=== PATIENT | female | born 2000 | race Caucasian/White ===

== ENCOUNTER → 2020-05-13 08:05 | Outpatient (CLI) | payer OTHER, SELFPAY | PROVIDERS: PCP Pediatrics; Visit Provider Family Medicine | DX: Z11.59 Encounter for screening for other viral diseases (principal) | CPT/HCPCS: 87635; U0003 ==

== ENCOUNTER → 2020-05-20 08:26 | Outpatient (CLI) | payer OTHER, SELFPAY ==
[2017-03-17 18:38] VITALS: BMI 20.5
== END ==
LOC: OLS.ACH 08:27 → LABSPEC 05-22 12:41
PROVIDERS: PCP Pediatrics; Referring Provider Family Medicine; Visit Provider Family Medicine
DX: Z03.818 Encounter for observation for suspected exposure to other biological agents ruled out (principal)
CPT/HCPCS: 87635; U0003

== ENCOUNTER → 2020-07-31 14:44 | Outpatient (CLI) | payer OTHER, SELFPAY ==
[2017-03-17 18:38] VITALS: BMI 20.5
== END ==
PROVIDERS: PCP Pediatrics; Referring Provider Family Medicine; Visit Provider Family Medicine
DX: Z11.59 Encounter for screening for other viral diseases (principal)
CPT/HCPCS: 87635; U0003

== ENCOUNTER → 2020-08-14 15:00 | Outpatient (CLI) | payer OTHER, SELFPAY ==
[2017-03-17 18:38] VITALS: BMI 20.5
== END ==
PROVIDERS: Referring Provider Family Medicine; Visit Provider Family Medicine
DX: Z11.59 Encounter for screening for other viral diseases (principal)
CPT/HCPCS: 87635; U0003

== ENCOUNTER → 2020-08-28 16:13 | Outpatient (CLI) | payer OTHER, SELFPAY ==
[2017-03-17 18:38] VITALS: BMI 20.5
== END ==
PROVIDERS: Referring Provider Family Medicine; Visit Provider Family Medicine
DX: Z03.818 Encounter for observation for suspected exposure to other biological agents ruled out (principal)
CPT/HCPCS: 87635; U0003

== ENCOUNTER → 2020-09-11 10:49 | Outpatient (CLI) | payer OTHER, SELFPAY ==
[2017-03-17 18:38] VITALS: BMI 20.5
== END ==
PROVIDERS: Referring Provider Family Medicine; Visit Provider Family Medicine
DX: Z03.818 Encounter for observation for suspected exposure to other biological agents ruled out (principal)
CPT/HCPCS: 87635; U0003

== ENCOUNTER → 2020-09-25 16:00 | Outpatient (CLI) | payer OTHER, SELFPAY | PROVIDERS: Referring Provider Family Medicine; Visit Provider Family Medicine | DX: Z03.818 Encounter for observation for suspected exposure to other biological agents ruled out (principal) | CPT/HCPCS: 87635; U0003 ==

== ENCOUNTER → 2024-09-11 | Outpatient (CLI) | payer OTHER, SELFPAY | END | disposition home or self-care (01) | LOC: LABSPEC 18:02 | PROVIDERS: Visit Provider Physician Assistant | DX: N39.0 Urinary tract infection, site not specified (principal) | CPT/HCPCS: 87086; 87088 ==

== ENCOUNTER 2025-07-02 05:41 | Outpatient (REF) | payer OTHER, SELFPAY ==
[2025-07-02 05:41] VITALS: BP 122/94; PULSE 82; RESP 16; TEMP 36.6; O2SAT 98; BMI 21.3
--- NOTE | 2025-07-02 05:55 | EDS_ITS ---
HPI History of Present Illness Chief Complaint: Occup Expose Informant: patient Onset/Context/Timing Onset: Today Context: Sudden Onset Quality: Puncture wound Location: Left long finger Worsened by: Nothing Relieved by: Nothing Narrative Narrative: Patient presents with needlestick exposure that occurred today. Patient was administering Lovenox to a patient when she accidentally stuck herself with the needle after she injected Lovenox into the source patient. Patient cleaned the area immediately. Patient denies any bleeding. Patient denies any paresthesias or weakness. Patient states her last tetanus was up-to-date. Patient denies any other injuries. [facility] Medical History Physical exam, pre-employment no medical history Home Medications ?Medication ?Instructions ?Recorded ?Last Taken ?Type NK 02/12/25 Unknown History Allergy/AdvReac Type Severity Reaction Status Date / Time No Known Allergies Allergy Verified 07/02/25 05:44 Surgical History no surgical history no surgical history Social History Smoking Status: Never smoker ROS ROS ED Constitutional Constitutional ED: Denies chills or fever(s) Eyes Eyes: Denies blurry vision or change in vision ENT ENT ED: Denies rhinorrhea or sore throat Cardiovascular Cardiovascular: Denies chest pain or palpitations Respiratory/Chest Respiratory/Chest: Denies cough or dyspnea Gastrointestinal Gastrointestinal: Denies nausea or vomiting Genitourinary Genitourinary ED: Denies dysuria or hematuria Musculoskeletal Musculoskeletal: Denies back pain or neck pain Integumentary Denies abscess or rash Neurologic Neurologic: Denies headache(s) or weakness Allergic/Immunologic Allergic/Immunologic ED: Denies mouth swelling or urticaria EXAM Physical Exam Const Vital Signs: 07/02/25 05:41 07/02/25 05:41 Temperature 97.8 F Temperature Source Oral Pulse Rate 82 Respiratory Rate 16 Respiratory Pattern Normal Blood Pressure 122/94 H Blood Pressure Mean 103 Pulse Ox 98 Positive well nourished and well developed Constitutional Narrative: BMI is 21.3. General Appearance ED: well developed and NAD HEENT Reports moist mucous membranes Neck supple Extremity Extremity Narrative: There is a puncture wound noted over the volar aspect of the middle phalanx of the left middle finger. There is no active bleeding. There is mild edema. There is no deformity noted. There is full range of motion. Sensation is intact to light touch in all digits. Capillary refill is less than 2 seconds in all digits. General Extremety ED: Yes edema; Negative for tenderness General Extremity: edema Neuro oriented x3, CN's II-XII intact bilaterally and no sensory deficits noted Sensorium / Orientation: alert Motor Exam: strength 5/5 throughout Psych mental status grossly normal MDM MDM MDM Narrative Medical decision making narrative: Needlestick exposure protocol labs were obtained. Labs were obtained from the source patient as well. Patient reports that the source patient had no chronic medical conditions such as hepatitis or HIV. Patient is advised that this is low risk for blood-borne exposure transmission. Patient was instructed to follow-up with employee health in 5 to 7 days. Patient was instructed to return if worse in any way. Patient understood and was agreeable with the plan. All questions were answered. Discharge Plan Triage Chief Complaint: Occup Expose ED Provider: Juanito Dumas Dx/Rx/DC Orders Clinical Impression: Accidental hypodermic needlestick injury with exposure to body fluid Instructions: ED NEEDLE STICK Health Care Worker Prescriptions: No Action NK Primary Care Provider: Cayden Patton Referrals: Cayden Patton DO [Primary Care Provider] - 5-7 Days Print Language: Yoruba Disposition Disposition: Home, Self Care
--- OUTSIDE RECORDS SUMMARY | 2025-07-02 06:33 | XMS RPT_ITS | CCD ---
Author Organization [facility] Care Team Providers Care Customer Equipment Engineer Name Role Phone Kita Aguero LPN Unavailable Unavailabl aniya BeckwithDeanne peña Krysta Unavailable Abdias Mccartney Primary Care Provider Abdias Mccartney Primary Care Provider [phone] Abdias Mccartney MD Primary Care Provider PERLA DUNCAN Attending Unavailable PERLA DUNCAN Referring Unavailable ABDIAS MCCARTNEY Primary Care Unavailable PERLA DUNCAN Attending Unavailable ABDIAS MCCARTNEY Primary Care Unavailable Carlos Emanuel Attending Unavailable Assessment, Health Risk Referring Unavaila ble Jj Patton Primary Care Unavailable Assessment, Health Risk Attending Unavaila ble Jj Patton Primary Care Unavailable Assessment, Health Risk Attending Unavaila ble Assessment, Health Risk Referring Unavaila Jj Burden Primary Care Unavailable Jj Patton Referring Unavailable Carlos Emanuel Attending Unavailable Carlos Emanuel Attending Unavailable Medications Current Medications Medication Drug Class(es) Dates Sig (Normalized) Sig (Original) etonogestrel 68 mg drug implant (8 sources) Progestin Start: 02-18-2022 End: 02-17-2025 etonogestrel (NEXPLANON) subdermal implant 68 mg Indications: Insertion of implantable subdermal contraceptive 1 Each by SUBDERMAL route as directed. 1 Each 02/18/2022 01/26/2025 Discontinued Comment on above: 1 Each by SUBDERMAL route as directed. nitrofurantoin, macrocrystals 25 mg / nitrofurantoin, monohydrate 75 mg oral capsule (1 source) Nitrofuran Antibacterial Start: 12-20-2023 End: 12-27-2023 take 1 capsule by mouth twice daily nitrofurantoin monohydrate and macrocrystal (MACROBID) 100 mg capsule Indications: Dysuria , Urinary frequency Take 1 capsule by mouth two times a day for 7 days. 14 capsule 0 12/20/2023 12/27/2023 Active Comment on above: Take [address] [facility] two times a day for 7 days. Completed/Discontinued Medications Medication Drug Class(es) Dates Sig (Normalized) Sig (Original) ibuprofen 200 mg oral capsule (1 source) Nonsteroidal Anti-inflammatory Drug Start: 03-17-2017 IBUPROFEN 200 MG CAPS as directed IBUPROFEN [id number] Kita Aguero LPN Drug Treatment Unknown - unknown (1 source) No information available. Problems Active Problems Problem Classification Problem Date Documented Da te Episodic/Chronic Administrative/social admission (1 source) Encounter for pre-employment examination; Translations: [Encounter for pre-employment examination] Onset: 05-06-2025 Episodic Contraceptive and procreative management (3 sources) Patient encounter status; Translations: [Encounter for initial prescription of implantable subdermal contraceptive] Episodic Immunizations and screening for infectious disease (4 sources) Requires vaccination; Translations: [Encounter for immunization] Episodic Other screening for suspected conditions (not mental disorders or infectious disease) (1 source) Cancer cervix screening status; Translations: [Encounter for screening for malignant neoplasm of cervix] Episodic Unclassified (1 source) No current problems or disability 03-16-2017 Past or Other Problems Problem Classification Problem Date Documented Da te Episodic/Chronic Genitourinary symptoms and ill-defined conditions (3 sources) Dysuria; Translations: [Dysuria] Onset: 10-26-2024 12-20-2023 Episodic Other connective tissue disease (1 source) Biceps tendinitis; Translations: [Bicipital tendinitis, right shoulder] Onset: 03-17-2017 03-21-2017 Episodic Other non-traumatic joint disorders (1 source) Pain in elbow; Translations: [Pain in right elbow] Onset: 03-17-2017 03-17-2017 Episodic Sprains and strains (1 source) Unspecified sprain of right elbow, initial encounter; Translations: [Unspecified sprain of right elbow, initial encounter] Onset: 03-17-2017 03-21-2017 Episodic Urinary tract infections (1 source) Urinary tract infection, site not specified; Translations: [Urinary tract infection, site not specified] Onset: 10-26-2024 Episodic Results Test Name Value Interpretation Reference Range Facility Hepatitis B Surface Antibody on 05-06-2025 HEP B Surf Ab REAC Normal [facility] Comment on above: Result Comment: <8.5 mIU/mL: Non-Reactive 8.5<= x <11.5 mIU/mL: Indeterminate >=11.5 mIU/mL: Reactive Non Reactive: Inconsistent with immunity less than <10 mIU/mL Reactive: Consistent with immunity greater than or equal to 10 mIU/mL Performed By: #### L [id number] #### [facility] [address] [facility] [address] [id number] 02-12-2025 HEP B Surf Ab Non-Reactive Normal [facility] Comment on above: Result Comment: <8.5 mIU/mL: Non-Reactive 8.5<= x <11.5 mIU/mL: Indeterminate >=11.5 mIU/mL: Reactive Non Reactive: Inconsistent with immunity less than <10 mIU/mL Reactive: Consistent with immunity greater than or equal to 10 mIU/mL Performed By: #### L [id number] #### [facility] [address] [place], [place], [address] Urgent Care Visit Reporton 0 02-12-2025 Urgent Care Visit Report [facility] [address], [address] [place], [place] [address] OFFICE VISIT Date of Service: 02/12/25 MR#: [id number] Acct: [id number] Name: XIN MARINELLI Rep #: [id number] : 2000 Provider: AMADOR Davis Age/Sex: 24/F Location: [facility] Status: Signed Intake Vital Signs 09/11/24 13:38 Height 5 ft 1.5 in Weight: 115 lb 6 oz BMI 21.4 BP 100/62 Blood Pressure Location Lt brachial Position Sitting Respiration 15 Pulse 106 H Pulse Source NIBP Temp 99.6 F H Temp Source Oral Pulse Oximetry (%) 97 Oxygen Delivery Method room air Intake Visit Reasons: PE NON DOT PHYSICAL/ TCU Accompanied by: Self Allergies No Known Allergies Allergy (Verified 02/12/25 09:49) Medications ???Medication ???Instructions ???Recorded ???Confirmed ???Type NK 02/12/25 02/12/25 History Nurse's Note: Patient here for a TCU pre-employment physical. [facility] Medical History (Updated 02/12/25 @ 10:04 by Carlos ENGLISH PA) Physical exam, pre-employment Social History Smoking Status: Never smoker HPI HPI Details: XIN JOHNSONARTZ, is a 24 F who presents to the office today for Office Procedures Physical Exam Coding PE Coding Pre-employment PE: Yes Coding Level of Care Code No Charge Diagnoses Physical exam, pre-employment Z02.1 Assessment and Plan Assessment and Plan (1) Physical exam, pre-employment: Status: Acute 02/12/25 1004 Date Carlos ENGLISH Cosign Signature: Date (if applicable) CC: [facility] 01-25-2025 [facility] Office Visit (OBGYWM ) YVESXIN ([id number]) 1 F Date Time Provider Department 01/25/25 4:00 PM PERLA DUNCAN During your visit today, we recorded the following information about you: Pulse Blood pressure Weight Last Period 83/minute 106/74 50.3 kg 01/20/25 Perla Duncan APRN.JESSIKA 01/26/2025 9:40 AM Signed Xin is a 24 year old Female who presents for Nexplanon removal for desires conception. UNIVERSAL PROTOCOL / SAFETY CHECKLIST Procedure to be Performed: Nexplanon removal Sign In: A Moment of CARE was completed. Appropriate PPE (Personal Protective Equipment) worn by all providers involved with the procedure. Special equipment not required. Patient/Surrogate Stated/Verified: Patient name, Date of , Relevant allergies, and The intended procedure Time Out: Relevant labs, photos, and/or imaging studies are not applicable. Intended patient and procedure match the source document(s) (e.g. consent, HANDP, associated studies [imaging, pathology]) are not applicable. Consent obtained and matches the intended procedure. Yes. Correct side/site is not applicable. Medications required for this procedure are verified. Fire risk assessed and is not applicable. Implants: are not applicable. Sign Out: Specimens not collected. All instruments, equipment, possible retained foreign bodies are accounted for. Yes. The post-procedure plan of care has been communicated to the patient or surrogate. TECHNIQUE: Patient placed in supine position with left arm bent at the elbow and placed over the head. Skin cleansed with betadine. 1.5mL of 1% lidocaine with epi injected subQ along insertion site. Scalpel used to made a 5mm stab incision superficially at distal end of Nexplanon. Device removed under sterile technique with a small hemostat. Sterile pressure dressing applied. AANDP: 24 year old Female here for Nexplanon removal Nexplanon removed intact without difficulty. The patient was instructed to remove the dressing after 24 hours. Contraceptive plans Natural family planning Perla Duncan APRN.C PYTHON DEVELOPER Juan Turner MA 01/25/2025 4:39 PM Signed NEXPLANON PATIENT EDUCATION You may remove dressing in 24 hours. Expect some bruising. You may take over the counter pain medication (i.e. Tylenol, motrin, advil, etc) if you have discomfort. Referring Provider: PERLA DUNCAN [[id number]] Allergies As of Date: 01/25/2025 (No Known Allergies) Date Reviewed: 01/25/2025 Reviewed by: Perla Duncan APRN.C PYTHON DEVELOPER - Fully Assessed Reason for Visit: nexplanon removal [Other] Primary Visit Diagnosis:Encounter for Nexplanon removal [Z30.46] Problem List As Of Date: 01/25/2025 (None) Other instructions from your clinician: NEXPLANON PATIENT EDUCATION You may remove dressing in 24 hours. Expect some bruising. You may take over the counter pain medication (i.e. Tylenol, motrin, advil, etc) if you have discomfort. Medications Discontinued During This Encounter Prescriptions - etonogestrel (NEXPLANON) subdermal implant 68 mg (Discontinued) 1 Each by SUBDERMAL route as directed. Encounter Status:Closed by PERLA DUNCAN on 01/26/25 Normal [facility] CNOVon 12-21-2024 CNOV Office Visit (OBGYWM ) XIN MARINELLI ([id number]) 1 F Date Time Provider Department 12/21/24 9:30 AM PERLA DUNCAN OBGYWM During your visit today, we recorded the following information about you: Blood pressure Weight Height Last Period 114/62 50.8 kg 1.556 m 12/07/24 Perla Duncan APRN.C PYTHON DEVELOPER 12/21/2024 10:19 AM Signed Imaging Scheduler offered: Patient declines. Xin is a 24 year old who presents for an annual gynecologic exam without complaints. 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 Still get period: Yes Bleeding amount bothersome: No Bleeding between periods: Yes Period symptoms: Breast tenderness; Cramps; Mood change Menses: irregular spotting since Nexplanon inserted. Contraception: Nexplanon 02/18/2022 HPV vaccine: Yes Last Pap: 12/17/2022 normal HPV: N/A History of abnormal pap: No Last mammogram: never Sexually active: Yes History of STDS: None Patient concerns for STD exposure: No. Time with current partner: 2.5 years Pain with intercourse: No Postcoital bleeding: No Some documentation from previous visit of 12/20/2023 was copied and pasted, documentation has been reviewed and edited as necessary for today's visit. 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 PAST SURGICAL HISTORY Procedure Laterality Date NEXPLANON INSERTION Left 02/18/2022 TOOTH EXTRACTION wisdom teeth FAMILY HISTORY Problem Relation Age of Onset Cancer Father other (brain tumor) Father - surgery, doing well - chordoma other (precancerous skin lesions) Maternal Grandfather Heart Attack Paternal Grandfather Alcohol abuse Paternal Grandfather SOCIAL HISTORY Social History Tobacco Use Smoking status: Never Smokeless tobacco: Never Vaping Use Vaping status: Never Used Substance Use Topics Alcohol use: Never Drug use: Never REVIEW OF SYSTEMS Abdomen: No abdominal pain, nausea, vomiting, diarrhea, or constipation. No bloating, early satiety, indigestion, or increased flatulence. Bladder: No dysuria, gross hematuria, urinary frequency, urinary urgency, or incontinence. Breast: No breast lumps, nipple d/c, overlying skin changes, redness or skin retraction. Allergies and current medication updated:Yes SENSITIVE EXAM: The sensitive examination was discussed with the Patient or Patient's Authorized Pin Machine Tender. As applicable, any other physician, advance practice provider, medical student, or other health professional student that will be observing or involved in the sensitive examination for educational or training purposes was discussed with the Patient or Authorized Pin Machine Tender. The Patient or Authorized Pin Machine Tender has agreed to proceed with the sensitive examination. (Sensitive examination includes inspection and/or palpation of the breasts, pelvis, prostate and anorectal regions). EXAM: BP 114/62 Ht 5' 1.25 (1.56m) Wt 112 lb (50.8kg) LMP 12/07/2024 BMI 20.98 kg/(m2). GENERAL: pleasant, female in no apparent distress HEENT: Normocephalic, atraumatic, mucus membranes moist, and no lesions NECK: Supple, full range of motion, no adenopathy, and thyroid normal DERMATOLOGY: Normal, without lesions, non-icteric, and non-hirsute Nexplanon in proper position left arm BREAST: soft, non-tender, symmetric, no dominant mass, normal nipple-areolar complex, no lymphadenopathy, and no nipple discharge CHEST: Normal inspiratory effort ABDOMEN: soft, non-tender, and no masses PELVIC: external genitalia normal, normal Bartholin's glands, urethra, Chickasha's glands, no vulvar lesions, no cervical lesions, good vaginal support, dark blood present, normal appearing perineal body and perianal region BIMANUAL: uterus normal size, shape and consistency, no adnexal masses, and non-tender RECTOVAGINAL: deferred. NEURO: alert and oriented x3,exam grossly non-focal EXTREMITIES: normal ASSESSMENT/PLAN: 1) Health maintenance: Pap/HPV up to date. Nutrition, exercise and routine health maintenance exams reviewed. HPV vaccine: completed series 2) Contraception: Nexplanon. Contraceptive options reviewed and information provided. Order for Nexplanon removal. Plans Natural family planning. Recommend condom, VCF strips and PNVFA. 3) STD screening: Declined STD check. 4) Follow up one year or sooner as needed Perla Duncan APRN.Perla Bowles APRN.JESSIKA (more content not included)... Normal [facility] Urine Cultureon 09-13-2024 URC Below infection leve l. Mixed Gram Pos Gram Neg Org [place] Count <1000 MIXC Mixed contaminants. Submit a new specimen if indicated. Normal [facility] Comment on above: Performed By: #### M [id number] #### [facility] [address] [place], [place], [address] Urgent Care Visit Reporton 1 Urgent Care Visit Report [facility] [address], [address] [place] [address] OFFICE VISIT Date of Service: 09/11/24 MR#: [id number] Acct: [id number] Name: XIN CLARK Rep #: [id number] : 2000 Provider: AMADOR Davis Age/Sex: 24/F Location: [facility] Status: Signed Intake Vital Signs 09/11/24 13:38 Height 5 ft 1.5 in Weight: 115 lb 6 oz BMI 21.4 BP 100/62 Blood Pressure Location Lt brachial Position Sitting Respiration 15 Pulse 106 H Pulse Source NIBP Temp 99.6 F H Temp Source Oral Pulse Oximetry (%) 97 Oxygen Delivery Method room air Intake Visit Reasons: N/V/D/RUBIN/FATIGUED Chief Complaint: n/v/d/RUBIN, fatigue Torch Cutter Required: No Is patient in pain?: Yes Allergies No Known Allergies Allergy (Verified 09/11/24 13:39) Medications ???Medication ???Instructions ???Recorded ???Confirmed ???Type nitrofurantoin 100 mg PO Q12H 5 days #10 caps 09/11/24 09/11/24 Rx monohydrate/macrocrystals 100 mg capsule (Macrobid) Is last menstrual period known: No Post menopausal: No Patient : No Have you fallen in the past year?: No Nurse's Note: n/v/d/RUBIN, fatigue, generalized slight abd pain x 3 days. pt able to hold water down but not food. pt took test at home this morning (neg). denies fever. states has dysuria x3 days and taking Cystex otc for s/s, does note improvement but not resolution at this time. denies flank pain or blood in urine. PFSH Social History Smoking Status: Never smoker HPI HPI Chief Complaint: n/v/d/RUBIN, fatigue Details: XIN CLARK, is a 24 F who presents to the office today for [facility] for approximately 3 day history of dysuria and urinary frequency with suprapubic pressure along with generalized abdominal pain and nausea and diarrhea. No complaints of fever, chills, sweats, lightheadedness/dizziness, vomiting, or chest pain/shortness of breath/dyspnea on exertion/mid back pain. No melena/hematochezia though cloudy urine appreciated. Krlr-yyf-lwpozty Cystex taken with minimal to no assist. Patient requesting POC screening for COVID-19 and influenza as well as urinalysis screening; home test yesterday was negative. No other associated symptoms and no alleviating/aggravating factors. ROS Const Constitutional: No other (As above) Exam Const General: cooperative, healthy appearing and no acute distress Orientation: alert, awake and oriented x3 Chest Chest palpation inspection: normal inspection of the chest Resp Effort Inspection: normal respiratory effort and able to speak in complete sentences Auscultation: Bilateral: Clear to Auscultation Cardio Palpation: normal PMI Rate: regular rate Rhythm: regular rhythm Heart Sounds: S1 normal, S2 normal, no gallops, no murmurs and no rubs Pulses: radial pulses present GI Inspection: normal to inspection Palpation: soft and tender suprapubic (Patient describes upon self-palpation) General: No CVA tenderness Skin General: no rashes or lesions noted Neuro General: patient alert, patient awake and patient oriented x3 Cognition: normal cognition Speech: speech normal Psych Appearance: grossly normal Mental Status: mental status grossly normal Mood: congruent mood Affect: normal affect Speech and Movement: speech and movement normal Attitude: cooperative Diagnoses Contact with or exposure to other viral diseases Z20.828 Urinary tract infection N39.0 Assessment and Plan Assessment and Plan (1) Contact with or exposure to other viral diseases: Status: Acute (2) Urinary tract infection: Status: Acute Plan: See POC results; urine sent to lab for UA and C/S. Macrobid as prescribed today. Supportive measures as instructed today. Follow-up with PCP in 3 to 5 days should symptoms not improve, sooner should symptoms only worsen or any other concerns develop. Patient states acknowledging understanding all the above Results POC Urinalysis Dip (Clinic) Office Urine Color Yellow Last Edit by Dianne Cuello on 09/11/24 13:41 Office Urine Clarity Clear Last Edit by Dianne Cuello on 09/11/24 13:41 Office Urine Glucose Negative Last Edit by Dianne Cuello on 09/11/24 13:41 Office Urine Ketones Large (80+) Last Edit by Dianne Cuello on 09/11/24 13:41 Off Ur Spec Hull 1.025 Last Edit by Dianne Cuello on 09/11/24 13:41 Office Urine pH 6.0 Last Edit by Dianne Cuello on 09/11/24 13:41 Office Urine Bilirubin Negative Last Edit by Dianne Cuello on 09/11/24 13:41 Office Urine Urobilinogen Negative Last Edit by Dianne Cuello on 09/11/24 13:41 Office Urine Blood Trace Last Edit by Dianne Cuello on 09/11/24 13:41 Office Urine Blood Hemolyzed NA Last Edit by Dianne Cuello on 09/11/24 13:41 Office Uri (more content not included)... Normal [facility] UA DIP, URINE (POC)on 2023 BILIRUBIN UA (POCT) Negative Negative [facility] CLARITY U[facility] (POCT) [facility] COLOR UA (POCT) Yellow [facility] GLUCOSE UA (POCT) Negative Negative mg/dL [facility] Hemoglobin Ql (U) Moderate Abnormal Negative [facility] KETONE UA (POCT) Negative Negative mg/dL [facility] LEUKOCYTES UA (POCT) Moderate Abnormal Negative [facility] NITRITE UA (POCT) Negative Negative [facility] PH UA (POCT) 5.5 4.5 - 8.0 [facility] Protein Ql (U) Negative Negative mg/dL [facility] SPECIFIC GRAVITY UA (POCT) 1.025 1.005 - 1.030 [facility] UROBILINOGEN UA (POCT) 0.2 E.U./dL Normal E.U./dL [facility] HCG QUAL UR B/Oon 02-18-2022 status Negative neg - pos [facility] Quality Check Yes [facility] US THYROIDon 07-31-2021 US THYROID ORIGINAL EXAMINATION: ULTRASOUND OF THE THYROID WITH COLOR DOPPLER FLOW EVALUATION07/30/2021 2:01 pm ULTRASOUND OF THE THYROID: COMPARISON: None HISTORY: ORDERING SYSTEM PROVIDED HISTORY: Reason for Exam: thyromegaly on clinical examination, FINDINGS: The right and left lobes are 4.4 x 1.3 x 1.4 cm and 4.7 x 1.2 x 1.6 cm. The isthmus is also normal in size. The gland is homogeneous. No focal thyroid abnormality is seen. Estimated total number of nodules greater than or equal to 1 cm: 0 IMPRESSION: Normal thyroid ultrasound. Interpreted by: Tristian Zeng Preliminary Report By: Tristian Zeng Electronically signed By Tristian Zeng Dictated Date: 07/31/2021 9:22:41 AM Prelim Date: 07/31/2021 9:23:18 AM Sign Date: 07/31/2021 9:23:18 AM Ordering Provider: JJ PATTON [facility] ([place] Progress Noteon 01-07-2020 Design Assembler Authentication Interface Message Text I had the pleasure of seeing Xin Clark in clinic today for a follow-up visit regarding headaches. Xin Clark was last seen at the clinic on 10/29/2019. Xin Clark is 19 y.o. years old and was accompanied by mother for this visit. Since the last visit, Xin Clark reports headaches are improving overall since they are decreasing in frequency. However, she states they are increasing in intensity. She started using noise canceling earphones to block out loud noises. She also started using a peppermint oil on her forehead when she has a headache that seems to be helping. She drinks about 20 oz of water daily and sleeps 7 hours a night. Interval headache history: Frequency: once every other week Character: pressure Location: temples Radiation: occipital Average pain scale: 7-8/10 Aura: none Associated symptoms: phonophobia Any Focal Neurologic symptoms with headache: none Duration: half hour Abortive Treatment: does not like to take ibuprofen Response to treatment: N/A Aggravating Factors: loud noises Any recent E.R. Visits for headache: none Preventive treatment: Periactin, Magnesium, and Riboflavin Overall patient's assessment of headaches: improved Headache Disability: 1. In the last 3 months, how many full days of school were missed due to headaches? : 0 2. In the last 3 months, how many partial days of school were missed due to headaches? (Do not include the full days missed counted on Question 1): 0 3. In the last 3 months, how many days did you function less than half your ability in school because of a headache? (Do not include the days counted in Questions 1 and 2): 0 4. In the last 3 months, how many days were you not able to do things at home due to a headache? (For example chores, homework, etc): 1 5. In the last 3 months, how many days did you not participate in other activities due to a headache? (For example: play, go out, sports, etc): 12 6. In the last 3 months, how many days did you participate in these activities but functioned at less than half your ability? (Do not include the days counted in Question 5): 0 Total Score: 13 0 to 10, Little or no disability 11 to 30, Mild disability 31 to 50, Moderate disability 50+, Severe disability Previous Preventive Treatment Used:? None ? Previous Work-up for Headache:? Brain MRI: 04/20/17 IMPRESSION: ? 1. ? MRI of the brain is within normal limits. ? Pertinent labs and imaging have been reviewed. Meds: Medication Sig ? cyproheptadine (PERIACTIN) 4 MG tablet Take 3 tablets nightly ? vitamin B-2 (RIBOFLAVIN) 100 MG capsule Take 2 tablets (200 mg) by mouth twice a day. ? magnesium oxide (MAG OX) 400 MG TABS tablet Take 1 Tab (400 mg) by mouth daily ? ibuprofen (MOTRIN) 200 MG tablet Take 200 mg by mouth every 8 hours as needed Last dose Tuesday04-10-17 400 mg Indications: Fever, Mild to Moderate Pain ? vitamin B-2 (RIBOFLAVIN) 100 MG tablet Allergies: No Known Allergies Past History:? Diagnosis Date ? 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 Otitis media ? ? single infection ? ? Hyperacusis of both ears ? Family History:? Problem Relation Age of Onset ? Brain Tumor Father ? brainstem chordoma ? Migraines Paternal Aunt ? ? Rheumatoid Arthritis Maternal Grandfather ? ? Migraines Paternal Grandmother ? Social History: She is a freshman at [employer] and is studying nursing. She enjoys learning and is getting good grades. She also enjoys crocheting and being with her boyfriend. ROS: General: Negative for any unintended weight gain or loss. There has not been any injuries that have required medical attention Head: Negative for any medical issues regarding the patient's skull Face: Negative for any facial abnormalities Neck: Negative for any medical issues regarding the patient's neck or neck structures Eyes: Negative for any medical issues regarding the patient's eyes ENT: Negative for any medical issues regarding the patient's ears, nose or throat Respiratory: Negative for any medical issues regarding the lungs Cardiovascular: Negative for any medical issues regarding the patient's heart GI: Negative for any medical issues regarding the esophagus, stomach, intestines, exocrine pancreas or liver Urinary: Negative for any medical issues with elimination Musculoskel: Negative for any medical issues regarding the patient's muscles Orthopedic: Negative for any orthopedic issues involving bones, joints, spine or soft tissues comprising the orthopedic systems Skin: Negative for any skin abnormalities or discoloration Hematologic: Negative for any medical issues involving the blood or blood clotting mechanisms Endocrine system: Negative for any medical issues regarding the endocrine system including problems with the thyroid gland or diabetes Infectious: Negative for any infectious processes that have required the assistance of a physician Neuro exam: VSS: BP 110/62 Pulse 80 Ht 157 cm Wt 50.2 kg BMI 20.37 kg/m General: Patient appears healthy, well developed, well nourished and in no acute distress Cardiac: Rhythm regular, no murmurs present Respiratory: CTA, No wheezing, rhonchi or rales present. Mental status: Normal for age including orientation, memory, attention span, language and fund of knowledge Cranial nerve testing revealed the following: II- Pupils constrict to light bilaterally and accomodation reflex present. No papilledema on fundoscopic examination to the un-dilated eye. III, IV, - Pupils are equal, round, and reactive to light. Extraocular movements are intact. No nystagmus or strabismus present. V- Facial sensation was present and symmetrical VII - Eye closure was normal bilaterally and facial contours and strength were symmetrical VIII - Hearing present and equal bilaterally IX & X - Uvula midline with normal soft palate movement XI - Shoulder shrug strength appeared normal bilaterally XII - Tongue protrusion was midline Motor exam: Normal strength, muscle mass and tone in all extremities. Deep tendon reflexes were 2+ bilaterally. Cerebellar exam noted no involuntary movements or tremors present and finger to nose without dysmetria bilaterally. Sensation was intact and present to light touch. Coordination: fine motor intact, finger/nose exam performed, no abnormalities present. Rapidly alternating movements performed correctly. Gait: tandem gait normal and no ataxic movements present Labs/Imaging: none Impression: Xin is doing well with her headache management. She wishes to stay with the current plan and will contact me if she needs a Triptan added if consistency of natural supplements alone is ineffective. Plans: 1. Keep a headache diary and bring to your next visit. 2. Practice good lifestyle habits by: Drinking plenty of fluids Get regular and sufficient sleep Eat balanced meals Avoid skipping any meals especially breakfast Minimize stress Avoid known headache triggers 3. Preventive treatment:Continue Cyproheptadine 4mg -Take 3 tablets nightly -Continue natural supplements daily 4.? Abortive Treatment: (Treat within 30 minutes of migraine onset) Lay down in a cool, dark, quiet room Apply cold compress to forehead For head pain:? rest and chill out, if needed take? Ibuprofen? 2-2.5 tablets. If no better in 2 hours, take? 1.5 Extra Strength Tylenol ? Limit over the counter medication use to 2-3 days/week. ? 5.? Return in 6 months or sooner if needed- contact if triptan needed for headache management Aurelio Spivey, MSN, [employer], CPNP Neurology Nurse Practitioner [place] [phone] This note or partial portions of this note may have been created using a copy forward or copy paste feature, but these portions have been verified and re-edited for accuracy and any portions not in need of editing or review are not being used to generate any component necessary for billing purposes. Elements necessary for proper CPT code selection are based only on elements of the visit that are reviewed, re-examined or unique to this visit. Counseling and/or coordination of care was greater than 50% of the total time of 30 minutes spent on the encounter. Normal [facility] Progress Noteon 10-29-2019 Design Assembler Authentication Interface Message Text I had the pleasure of seeing Xin Clark in clinic today for a follow-up visit regarding headaches. Xin Clark was last seen at the clinic on 06/19/2019. Xin Clark is 19 y.o. years old and was accompanied by her mother for this visit. Since the last visit, Xin Clark reports her headaches have not been good. Towards the beginning oft he school year she was averaging about 2-3 severe headaches a week and she still has a mild daily headache. Towards the end of the semester the severe migraines decreased to about once a week. She increased her Cyproheptadine back to 2 tablets nighty a few weeks into the school year. She also got her noise inspector machine cut glass earphones fitted for her ears due to her hyperacusis, but she had to get them refitted this week. Interval headache history: Frequency: See above Character: Piercing and achy Location: All over the head or feels like a band around th head Radiation: No Average pain scale: 4-5/10 Aura: No Associated symptoms: Phonophobia, mild photophobia Any Focal Neurologic symptoms with headache: No Duration: 2 hours without treatment; does not normally treat; 30-45 minutes with treatment Abortive Treatment: Ibuprofen 2 tablets, if taken Response to treatment: Aborts all the time Aggravating Factors: Noise Any recent E.R. Visits for headache: No Preventive treatment: Cyproheptadine, Mg, Riboflavin Overall patient's assessment of headaches: Increased initially Headache Disability: 1. In the last 3 months, how many full days of school were missed due to headaches? : 0 2. In the last 3 months, how many partial days of school were missed due to headaches? (Do not include the full days missed counted on Question 1): 0 3. In the last 3 months, how many days did you function less than half your ability in school because of a headache? (Do not include the days counted in Questions 1 and 2): 5 4. In the last 3 months, how many days were you not able to do things at home due to a headache? (For example chores, homework, etc): 2 5. In the last 3 months, how many days did you not participate in other activities due to a headache? (For example: play, go out, sports, etc): 0 6. In the last 3 months, how many days did you participate in these activities but functioned at less than half your ability? (Do not include the days counted in Question 5): 0 Total Score: 7 0 to 10, Little or no disability 11 to 30, Mild disability 31 to 50, Moderate disability 50+, Severe disability Previous Preventive Treatment Used: None Previous Work-up for Headache: Brain MRI: 04/20/17 IMPRESSION: 1. MRI of the brain is within normal limits. Pertinent labs and imaging have been reviewed. Meds: Medication Sig cyproheptadine (PERIACTIN) 4 MG tablet Take 1.5 tablets nightly magnesium oxide (MAG OX) 400 MG TABS tablet Take 1 Tab (400 mg) by mouth daily vitamin B-2 (RIBOFLAVIN) 100 MG capsule Take 2 tablets (200 mg) by mouth twice a day. 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 ROS: General: Negative for any unintended weight gain or loss. There has not been any injuries that have required medical attention Head: Negative for any medical issues regarding the patient's skull Face: Negative for any facial abnormalities Neck: Negative for any medical issues regarding the patient's neck or neck structures Eyes: Negative for any medical issues regarding the patient's eyes ENT: Negative for any medical issues regarding the patient's ears, nose or throat Respiratory: Negative for any medical issues regarding the lungs Cardiovascular: Negative for any medical issues regarding the patient's heart GI: Negative for any medical issues regarding the esophagus, stomach, intestines, exocrine pancreas or liver Urinary: Negative for any medical issues with elimination Musculoskel: Negative for any medical issues regarding the patient's muscles Orthopedic: Negative for any orthopedic issues involving bones, joints, spine or soft tissues comprising the orthopedic systems Skin: Negative for any skin abnormalities or discoloration Hematologic: Negative for any medical issues involving the blood or blood clotting mechanisms Endocrine system: Negative for any medical issues regarding the endocrine system including problems with the thyroid gland or diabetes Infectious: Negative for any infectious processes that have required the assistance of a physician Neuro exam: VSS: BP 116/70 Pulse 99 Ht 156 cm Wt 48.9 kg BMI 20.09 kg/m General: Patient appears healthy, well developed, well nourished and in no acute distress Cardiac: Rhythm regular, no murmurs present Respiratory: CTA, No wheezing, rhonchi or rales present. Mental status: Normal for age including orientation, memory, attention span, language and fund of knowledge Cranial nerve testing revealed the following: II- Pupils constrict to light bilaterally and accomodation reflex present. No papilledema on fundoscopic examination to the un-dilated eye. III, IV, - Pupils are equal, round, and reactive to light. Extraocular movements are intact. No nystagmus or strabismus present. V- Facial sensation was present and symmetrical VII - Eye closure was normal bilaterally and facial contours and strength were symmetrical VIII - Hearing present and equal bilaterally IX & X - Uvula midline with normal soft palate movement XI - Shoulder shrug strength appeared normal bilaterally XII - Tongue protrusion was midline Motor exam: Normal strength, muscle mass and tone in all extremities. Deep tendon reflexes were 2+ bilaterally. Cerebellar exam noted no involuntary movements or tremors present and finger to nose without dysmetria bilaterally. Sensation was intact and present to light touch. Coordination: fine motor intact, finger/nose exam performed, no abnormalities present. Rapidly alternating movements performed correctly. Gait: tandem gait normal and no ataxic movements present Labs: None Impression: 19yo female with hx of concussion and chronic post traumatic headaches with hyperacusis and headaches consistent with chronic daily headaches. Discussed the option to maximize the Cyproheptadine or consider a preventive treatment switch. Discussed Amitriptyline, Topamax and Verapamil with possible side effects. At this time we will maximize dosing and assess at her follow up. Plans: 1. Keep a headache diary and bring to your next visit. 2. Practice good lifestyle habits by: Drinking plenty of fluids Get regular and sufficient sleep Eat balanced meals Avoid skipping any meals especially breakfast Minimize stress Avoid known headache triggers 3. Preventive treatment: Increase Cyproheptadine 4mg -Take 2.5 tablets nightly for one week and then increase to 3 tablets nightly and stay there -Continue natural supplements daily Can consider Migravent one tablet 2x/day or Migralief one tablet 2x/day in place of Mag and Riboflavin separately 4. Abortive Treatment: (Treat within 30 minutes of migraine onset) Lay down in a cool, dark, quiet room Apply cold compress to forehead For head pain: rest and chill out, if needed take Ibuprofen 2-2.5 tablets. If no better in 2 hours, take 1.5 Extra Strength Tylenol Limit over the counter medication use to 2-3 days/week. 5. Return on spring Aurelio Spivey, MSN, [employer], CPNP Neurology Nurse Practitioner [address] [id number] This note or partial portions of this note may have been created using a copy forward or copy paste feature, but these portions have been verified and re-edited for accuracy and any portions not in need of editing or review are not being used to generate any component necessary for billing purposes. Elements necessary for proper CPT code selection are based only on elements of the visit that are reviewed, re-examined or unique to this visit. Counseling and/or coordination of care was greater than 50% of the total time of 25 minutes spent on the encounter. Normal [facility] Progress Noteon 06-19-2019 Design Assembler Authentication Interface Message Text I had the pleasure of seeing Xin Clark in clinic today for a follow-up visit regarding headaches. Xin Clark was last seen at the clinic on 03/21/2019. Xin Clark is 18 y.o. years old and was accompanied by her sister for this visit. Since the last visit, Xin Clark reports her headaches appear to have remained unchanged. She does not usually like to teat her headaches, but when she does the headaches are aborted within 30 minutes. When the headaches are milder they only last about 10 minutes and she normally does not treat. She only treats her severe migraines. She decreased her Cyproheptadine about one month ago to 1.5 tablets as headaches remained stable at this dose, but she never decreased down to one tablet as previously discussed. Headache diary: March: 16 April:22 May: 15 June: Interval headache history: Frequency: See above Character: Piercing and achy Location: All over the head Radiation: No Average pain scale: 6/10 Aura: No Associated symptoms: Phonophobia, mild photophobia Any Focal Neurologic symptoms with headache: No Duration: 30 minutes with treatment Abortive Treatment: Ibuprofen 2 tablets Response to treatment: Aborts all the time Aggravating Factors: Noise and lack of sleep Any recent E.R. Visits for headache: No Preventive treatment: Cyproheptadine, Mg, Riboflavin Overall patient's assessment of headaches: Improved Previous Preventive Treatment Used: None Previous Work-up for Headache: Brain MRI: 04/20/17 IMPRESSION: 1. MRI of the brain is within normal limits. Pertinent labs and imaging have been reviewed. Meds: Medication Sig cyproheptadine (PERIACTIN) 4 MG tablet TAKE 2 TABLETS AT BEDTIME magnesium oxide (MAG OX) 400 MG TABS tablet Take 1 Tab (400 mg) by mouth daily vitamin B-2 (RIBOFLAVIN) 100 MG capsule Take 2 tablets (200 mg) by mouth twice a day. 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 ROS: General: Negative for any unintended weight gain or loss Injury. There has not been any injuries that have required medical attention Head: Negative for any medical issues regarding the patient's skull Face: Negative for any facial abnormalities Neck: Negative for any medical issues regarding the patient's neck or neck structures Eyes: Negative for any medical issues regarding the patient's eyes ENT: Negative for any medical issues regarding the patient's ears, nose or throat Respiratory: Negative for any medical issues regarding the lungs Cardiovascular: Negative for any medical issues regarding the patient's heart GI: Negative for any medical issues regarding the esophagus, stomach, intestines, exocrine pancreas or liver Urinary: Negative for any medical issues with elimination Musculoskel: Negative for any medical issues regarding the patient's muscles Orthopedic: Negative for any orthopedic issues involving bones, joints, spine or soft tissues comprising the orthopedic systems Skin: Negative for any skin abnormalities or discoloration Hematologic: Negative for any medical issues involving the blood or blood clotting mechanisms Endocrine system: Negative for any medical issues regarding the endocrine system including problems with the thyroid gland or diabetes Infectious: Negative for any infectious processes that have required the assistance of a physician Neuro exam: VSS: BP 106/59 Pulse 72 Ht 155.4 cm Wt 50.7 kg BMI 20.99 kg/m General: Patient appears healthy, well developed, well nourished and in no acute distress Cardiac: Rhythm regular, no murmurs present Respiratory: CTA, No wheezing, rhonchi or rales present. Mental status: Normal for age including orientation, memory, attention span, language and fund of knowledge Cranial nerve testing revealed the following: II- Pupils constrict to light bilaterally and accomodation reflex present. No papilledema on fundoscopic examination to the un-dilated eye. III, IV, - Pupils are equal, round, and reactive to light. Extraocular movements are intact. No nystagmus or strabismus present. V- Facial sensation was present and symmetrical VII - Eye closure was normal bilaterally and facial contours and strength were symmetrical VIII - Hearing present and equal bilaterally IX & X - Uvula midline with normal soft palate movement XI - Shoulder shrug strength appeared normal bilaterally XII - Tongue protrusion was midline Motor exam: Normal strength, muscle mass and tone in all extremities. Deep tendon reflexes were 2+ bilaterally. Cerebellar exam noted no involuntary movements or tremors present and finger to nose without dysmetria bilaterally. Sensation was intact and present to light touch. Coordination: fine motor intact, finger/nose exam performed, no abnormalities present. Rapidly alternating movements performed correctly. Gait: tandem gait normal and no ataxic movements present Labs: None Impression: 18yo female with hx of concussion and chronic post traumatic headaches with hyperacusis and headaches consistent with episodic migraine without aura stable with Cyproheptadine and natural supplements despite the Cyproheptadine dose decrease. She is interested in continuing to decrease her preventive treatment. Advised to decrease to one tablet nightly and if with migraine increase to resume does that kept headaches at bay. Plans: 1. Keep a headache diary and bring to your next visit. 2. Practice good lifestyle habits by: Drinking plenty of fluids Get regular and sufficient sleep Eat balanced meals Avoid skipping any meals especially breakfast Minimize stress Avoid known headache triggers 3. Preventive treatment: Decrease Cyproheptadine 4mg -Take one tablet nightly -Continue natural supplements daily -If with this weaning process the headache frequency begins to increase, go back to the dose that kept the headaches at bay and notify the office. 4. Abortive Treatment: (Treat within 30 minutes of migraine onset) Lay down in a cool, dark, quiet room Apply cold compress to forehead For head pain: rest and chill out, if needed take Ibuprofen 2-2.5 tablets. If no better in 2 hours, take 1.5 Extra Strength Tylenol Limit over the counter medication use to 2-3 days/week. 5. Return in 4 months on [place] break, sooner if needed Aurelio Spivey, MSN, [employer], CPNP Neurology Nurse Practitioner [address] [id number] This note or partial portions of this note may have been created using a copy forward or copy paste feature, but these portions have been verified and re-edited for accuracy and any portions not in need of editing or review are not being used to generate any component necessary for billing purposes. Elements necessary for proper CPT code selection are based only on elements of the visit that are reviewed, re-examined or unique to this visit. Counseling and/or coordination of care was greater than 15 minutes which is more than 50% of the total time of 20 minutes spent on the encounter. Normal [facility] Progress Noteon 06-13-2019 Design Assembler Authentication Interface Message Text Patient ID: Xin Clark is a 18 y.o. female. Her chief complaint(s) include: Rash (x tuesday. Itches. Ck spot on foot, she pulled the thorn out.) Assessment 1. Poison oj 2. Rash 3. Cough Plan Xin was seen today for rash. Diagnoses and all orders for this visit: Poison oj - triamcinolone (KENALOG) 0.025 % ointment; Apply to affected area 2 times daily as needed (itchy rash) for up to 10 days Apply thin film to affected areas Start with topical steriods first given localized If worsening, on face, spreading- will start oral steriods Mother will call if worsening Rash Avoid scratching. Cool compress Call if area looks more red, spreading, painful, drainage Cough - improving. call if worsening coughing, persistent cough next week, fever, or new concerns- will start abx at that time to cover sinusitis Return if symptoms worsen or fail to improve. Subjective HPI Comments: 18 y/o here for 2 types of rashes Has weeding outside with mother and started getting itchy rash on forearms and right leg since Tuesday. no pain/drainage/pustules. Mother has similar rash. No fever. No new products/detergants/lotions Was playing frisbee outside barefoot on Tuesday. Step on something like a thorn or wood. Pulled it out. Has some redness and started itching yesterday. No pain. No fever. No drainage. Cough x 1 month- dry. Getting better. No fever/sore throat. No ear pain. No congestion/runnynose. No trouble breathing/SOB. She is accompanied by her mother. Review of Systems Skin: Positive for rash. Objective Vital Signs 06/13/19 1139 Temp: 36.2 C (97.2 F) TempSrc: Temporal Weight: 49.8 kg There is no height or weight on file to calculate BMI. Physical Exam Constitutional: She appears well. She is active. No distress. HENT: Head: Atraumatic. Right Ear: Tympanic membrane normal. Left Ear: Tympanic membrane normal. Nose: No nasal discharge. Mouth/Throat: Mucous membranes are moist. Oropharynx is clear. Eyes: Conjunctivae are normal. Neck: Normal range of motion. Neck supple. Cardiovascular: Normal rate, regular rhythm, S1 normal and S2 normal. Heart murmur not heard. Pulmonary/Chest: Effort normal and breath sounds normal. There is normal air entry. No stridor. No respiratory distress. Air movement is not decreased. She has no wheezes. She has no rhonchi. She has no rales. Exhibits no retraction. Abdominal: Soft. Bowel sounds are normal. She exhibits no distension and no mass. There is no tenderness. Neurological: She is alert. Skin: Capillary refill takes less than 3 seconds. Rash (small circular area of light erythema on bottom on right foot, pt scratching at it. no flucutuance/induration/draina ge, non tender) noted. Scattered erythematous papules on right upper thigh, several macular papular rash on BL forearms, no drainage/tenderness Skin is warm. Vitals reviewed: Temperature 36.2 C (97.2 F), temperature source Temporal, weight 49.8 kg, last menstrual period 05/09/2019. Normal [facility] Progress Noteon 03-21-2019 Design Assembler Authentication Interface Message Text I had the pleasure of seeing Xin Clark in clinic today for a follow-up visit regarding headaches. Xin Clark was last seen at the clinic on 02/05/2019 by Denita Lucero CNP. Xin Clark is 18 y.o. years old and was accompanied by her mother for this visit. Since the last visit, Xin Clark reports her headaches have been less frequent, but with the same intensity. She reports noise is a huge trigger for her headaches and when she separates herself from it the headaches subside. She reports on average she may miss a day or two of her natural supplements, but she is pretty consistent with her Cyproheptadine. They have not acquired the ear buds recommended by Dr. Castillo due to the distance to [place] and would prefer to find someone closer to [place], [place]. Interval headache history: Frequency: once a week or once every other week Character: Pounding Location: Parietal region Radiation: No Average pain scale: 6/10 Aura: No Associated symptoms: Phonophobia Any Focal Neurologic symptoms with headache: No Duration: 30 minutes with treatment Abortive Treatment: Ibuprofen 2 tablets Response to treatment: Aborts all the time Aggravating Factors: Noise and lack of sleep Any recent E.R. Visits for headache: No Preventive treatment: Cyproheptadine, Mg, Riboflavin Overall patient's assessment of headaches: Improved Headache Disability: 1. In the last 3 months, how many full days of school were missed due to headaches? : 0 2. In the last 3 months, how many partial days of school were missed due to headaches? (Do not include the full days missed counted on Question 1): 0 3. In the last 3 months, how many days did you function less than half your ability in school because of a headache? (Do not include the days counted in Questions 1 and 2): 6 4. In the last 3 months, how many days were you not able to do things at home due to a headache? (For example chores, homework, etc): 0 5. In the last 3 months, how many days did you not participate in other activities due to a headache? (For example: play, go out, sports, etc): 12 6. In the last 3 months, how many days did you participate in these activities but functioned at less than half your ability? (Do not include the days counted in Question 5): 10 Total Score: 28 0 to 5, MIDAS Grade I, Little or no disability 6 to 10, MIDAS Grade II, Mild disability 11 to 20, MIDAS Grade III, Moderate disability 21+, MIDAS Grade IV, Severe disability Previous Preventive Treatment Used: None Previous Work-up for Headache: Brain MRI: 04/20/17 IMPRESSION: 1. MRI of the brain is within normal limits. Pertinent labs and imaging have been reviewed. Meds: Medication Sig magnesium oxide (MAG OX) 400 MG TABS tablet Take 1 Tab (400 mg) by mouth daily vitamin B-2 (RIBOFLAVIN) 100 MG capsule Take 2 tablets (200 mg) by mouth twice a day. cyproheptadine (PERIACTIN) 4 MG tablet At bedtime take 2 tablets (8 mg). 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 ROS: General: Negative for any unintended weight gain or loss Injury. There has not been any injuries that have required medical attention Head: Negative for any medical issues regarding the patient's skull Face: Negative for any facial abnormalities Neck: Negative for any medical issues regarding the patient's neck or neck structures Eyes: Negative for any medical issues regarding the patient's eyes ENT: Negative for any medical issues regarding the patient's ears, nose or throat Respiratory: Negative for any medical issues regarding the lungs Cardiovascular: Negative for any medical issues regarding the patient's heart GI: Negative for any medical issues regarding the esophagus, stomach, intestines, exocrine pancreas or liver Urinary: Negative for any medical issues with elimination Musculoskel: Negative for any medical issues regarding the patient's muscles Orthopedic: Negative for any orthopedic issues involving bones, joints, spine or soft tissues comprising the orthopedic systems Skin: Negative for any skin abnormalities or discoloration Hematologic: Negative for any medical issues involving the blood or blood clotting mechanisms Endocrine system: Negative for any medical issues regarding the endocrine system including problems with the thyroid gland or diabetes Infectious: Negative for any infectious processes that have required the assistance of a physician Neuro exam: VSS: BP 122/65 Pulse 77 Ht 153.8 cm Wt 51.1 kg BMI 21.60 kg/m General: Patient appears healthy, well developed, well nourished and in no acute distress Cardiac: Rhythm regular, no murmurs present Respiratory: CTA, No wheezing, rhonchi or rales present. Mental status: Normal for age including orientation, memory, attention span, language and fund of knowledge Cranial nerve testing revealed the following: II- Pupils constrict to light bilaterally and accomodation reflex present. No papilledema on fundoscopic examination to the un-dilated eye. III, IV, - Pupils are equal, round, and reactive to light. Extraocular movements are intact. No nystagmus or strabismus present. V- Facial sensation was present and symmetrical VII - Eye closure was normal bilaterally and facial contours and strength were symmetrical VIII - Hearing present and equal bilaterally IX & X - Uvula midline with normal soft palate movement XI - Shoulder shrug strength appeared normal bilaterally XII - Tongue protrusion was midline Motor exam: Normal strength, muscle mass and tone in all extremities. Deep tendon reflexes were 2+ bilaterally. Cerebellar exam noted no involuntary movements or tremors present and finger to nose without dysmetria bilaterally. Sensation was intact and present to light touch. Coordination: fine motor intact, finger/nose exam performed, no abnormalities present. Rapidly alternating movements performed correctly. Gait: tandem gait normal and no ataxic movements present Labs: None Impression: 18yo female with hx of concussion with hyperacusis and headaches consistent with episodic probable migraine without aura improved possibly related to resolution of her concussion. She is interested in decreasing her preventive treatment, instructed to resume does that kept headaches at bay if headaches begin to increase with the mediation decrease. Provided number to [facility] main line to inquire hydroelectric component machinist closer to her area. Plans: 1. Keep a headache diary and bring to your next visit. 2. Practice good lifestyle habits by: Drinking plenty of fluids Get regular and sufficient sleep Eat balanced meals Avoid skipping any meals especially breakfast Minimize stress Avoid known headache triggers 3. Preventive treatment: Decrease Cyproheptadine 4mg -Take 1.5 tablets nightly for one week and then decrease to one tablet nightly -Continue natural supplements daily 4. Abortive Treatment: (Treat within 30 minutes of migraine onset) Lay down in a cool, dark, quiet room Apply cold compress to forehead For head pain: rest and chill out, if needed take Ibuprofen 2.5 tablets. If no better in 2 hours, take 1.5 Extra Strength Tylenol Limit over the counter medication use to 2-3 days/week. 5. Return in 3-4 months, sooner if needed Aurelio Spivey, MSN, [employer], CPNP Neurology Nurse Practitioner [address] [address] Counseling and/or coordination of care was greater than 15 minutes which is more than 50% of the total time of 20 minutes spent on the encounter. Normal [facility] Progress Noteon 02-05-2019 Design Assembler Authentication Interface Message Text [facility] Pediatric Neurology New Patient Note Primary Care Doctor: Abdias Mccartney MD Date of service: 02/05/2019 Provider: Teagan Rodriguez, MSN, C PYTHON DEVELOPER Xin Clark is a 18 y.o. female was seen today in the Brain Injury Program, accompanied by her mother. The following is a review of her injury history, exam, and treatment plan. Present injury: The injury occurred: fall 2016, over 1.5 years ago. TBI Description: Playing soccer, elbow to left side of head. 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 Management/Imaging: She did not seek treatment, felt like the concussion resolved in about 6 weeks except for chronic headaches. At her first visit to TBI clinic on 10/11/18, Xin had 2-3 headaches per week, with significant noise sensitivity. She had been playing soccer at the time, headaches had worsened to 5 headaches per week, she had at least one fall during this season that may have worsened her symptoms as well. She was occasionally noticing dizziness. Evaluation that day revealed no new concussion symptoms. She had a post traumatic headaches with migraine and tension phenotypes that had worsened over the last year. I recommended cyproheptadine, magnesium and riboflavin for headache prevention. Today Xin says her headaches are under control with the cyproheptadine 8 mg and supplements, she has only missed a couple of doses. She continues to have severe bilateral noise sensitivity that has triggered 1 severe headache in the last month. She is in orchestra and wears ear plugs that seem to help some. She is doing well in school, graduates this year and will be going [employer] in the fall. Post Concussive Symptoms reviewed in the following domains: Physical: 114/65 50.3 kg (20 %, Z= -0.83, Source: [facility] (Girls, 2-20 Years)) Headache: Xin is having 1 headache per week, only when exposed to loud noise, like orchestra, parties and crowds. Frequency/Duration: the headaches only last a few minutes or until she is out of the noise. Location: both sides and top of her head. Character: sometimes pressure, rarely throbbing, pounding, no pulsating. Severity: 5/10, no longer debilitating, only one bad headache in the last month. The headaches do not awakened from sleeping. Triggers: Lays down, gets out of the noise, ibuprofen 400 mg Accompaniments: bright light sensitivity, significant noise sensitivity, no nausea, no vomiting, no dizziness, no numbness/tingling/weakness in extremities, no speech problems or swallowing problems, no other focal neurological symptoms. Relief from: Rest, ibuprofen Headache phenotype (answer yes or no) Possible migraine phenotype? (A yes answer for 2/3 following items): yes Is nausea present? no Is light sensitivity present? yes Does headache prevent you from doing your regular activities? yes Additional features for stratification Continuous headache present? no Daily headache present? yes PCSS Current Headache Score: 4 Cervical: There is no neck pain, no radicular symptoms. Vestibular: There is no dizziness or unsteadiness with quick head movements. There is dizziness with getting up from laying down. Water intake: 20 ounces per day. There is premorbid car/motion sickness. There is occasional bilateral tinnitus, high pitched when in quiet, no problems hearing. Ocular: There is no blurred vision with focusing on objects/reading. No double vision. Cognitive: Xin has no mental fogginess and is not feeling slowed down mentally. There are no problems with concentration, and no problems with memory. Xin is in 12th grade at [employer]. Previous grades have been A and B student, school performance is not affected by the injury. Sleep: Xin has no problems initiating sleep, and no problems staying asleep. Sleeps 7-8 hours/night, is not drowsy in the daytime, is not napping. Mood: Parent and patient report mood is normal, not affected by the injury. Review of systems: General: Previously healthy, appetite is normal. Neurologic: Xin has had 2 previous concussion(s). #1.) 03/17/17 treated in TBI clinic, she had symptoms until summer, did not follow up in TBI clinic. Per Johanna Henning 03/30/17: Impression: Xin presents with a concussion that occurred 03/17/17 followed by persistent daily headaches with a premorbid hisotry for daily headaches. The neurologic exam revealed the following pertinent findings John lateralizes to the left and was otherwise normal. Vital signs reveal orthostasis. The situation in which Xin had a syncopal episode is not uncommon and orthostasis could have contributed to this. Instructions for management of the headaches are noted below and include stopping all analgesia in the event there is an element of analgesia rebound. The magnesium and vitamin B2 will be continued and the B2 increased to 400 mg daily since this is the recommended preventive dose. Risks and benefits of the medication discussed. MRI brain will be done in view of positive Lopez since it is unclear if this is a finding that would have been present prior to the injury or subsequent to the injury. Refer to audiology for hearing evaluation. Xin is not currently cleared to return to sports until the MRI and audiology exam is completed. Instructions: Stop all Ibuprofen and Tylenol for minimum of 6 weeks. Preventive Treatment: The importance of adequate fluid intake is critical. Drink a minimum of 60 ounces of water, milk, gatorade and decaffeinated fluids. If you are involved in sports, increase this further by drinking 50% more than your daily intake on game or practice days, No caffeinated beverages, continue a regular sleep pattern which means going to bed and awakening at the same time every day, even on weekends. Keep a headache diary, Continue daily Magnesium 400 mg, Vitamin B2 400 mg 04/20/17: MRI of the brain is within normal limits #2.) Fall of 2016 elbow to left side of head in soccer, 6 weeks of symptoms, she did not tell anyone except her head athletic trainer/strength coach, she sat out 3 weeks and started supplements, headaches less severe but continued afterward. There has been no history of staring spells, seizures, neurologic problems. history/development: full term, healthy, no developmental delays. There were no complications of mom's or at . Vestibular: There has been no impaired balance, dizziness, coordination problems. There has been premorbid motion sickness. Ocular: There has been no previous vision problems. Cognitive: There has been no history of learning disability, no IEP, no speech therapy, no history of ADD/ADHD. Sleep: There has been no previous sleep disturbances. Mood: There has been no past behavioral or mood conditions. There has been no previous ETOH/drug use/abuse. FMH: Migraine headaches in primary family: dad, PGM, paternal aunt. There are family members with seizures, mom had epilepsy until teen years, GTC, no family members with brain diseases. There are family members with psychiatric disorders, mom has anxiety, is on medication. PFSH: Xin lives with mom, dad, brothers (15, 10), exchange student from [employer]. Stressors include: none Usual activies include show choir. PHYSICAL EXAMINATION: Xin is right handed Vision Screen: Right 20/20, Left 20/20 General: well appearing, no acute distress Hydration: mucous membranes moist Head: no pain, numbness, tingling on palpation of scalp or face. Mouth: Tongue midline, pharynx without erythema or exudate Ears: The external canals without swelling, cerumen impaction, or otorrhea. The tympanic membranes are clear bilaterally. Cervical spine: Symmetric musculature, no tenderness to palpation of midline, no tenderness of paracervical muscles, AROM is full and pain free, flexion with rotation is not limited. Spurlings and compression tests are negative for radiculopathy. CV: RRR. No murmur, no carotid, periorbital, or temporal bruits Chest:/Lung: breath sounds clear and equal bilaterally Abdomen: Soft, non-tender Extremities: non tender, full range of motion, strength Back: non tender, no deformity. Skin: warm, dry, no rash NEUROLOGIC EXAM: General: alert and interactive. Attention: attention span and concentration are age appropriate. Language: fluent and spontaneous without dysarthric features Mental status: Alert and oriented x 3. Cranial Nerves: II - PERRL III - no ptosis III/IV/ - EOMs intact, gaze appears conjugate in all directions. V - normal chewing VII - symmetric smile VIII - hearing intact; balance is normal with tandem & closed eye testing IX, X - normal palatal elevation XI - normal sternocleidomastoid and trapezius function XII - normal tongue protrusion, no fasciculations Funduscopic eye exam: sharp disc margins, vessels visualized, no papilledema appreciated. Vestibular/Ocular: Near point convergence is 2,2,2 cm. Near point of accommodation is 4 cm right/ 4 cm left. Vertical and horizontal saccade and slow pursuit movements are normal, there is no slowing, no undershooting, no overshooting of targets, no nystagmus. Eye tracking is non-provocative for dizziness/discomfort/saccadic correction. VOR gaze stability is normal, there is no dizziness, no blurriness with head movements. Cerebellar exam: noted no tremors, gait was normal, romberg is steady, balance testing double leg, single leg, eyes open is steady, with closed is steady, tandem stance steady with eyes open and closed, tandem gait was steady with head movement side to side. Fine motor testing normal for rapid finger tapping, hand pronation/supination, finger to object. Motor exam: normal strength, muscle mass, and tone in all extremities. Deep tendon reflexes: 2+ and equal in biceps, brachioradialis, triceps, patellar, achilles tendons. Plantar responses were flexor bilaterally. Sensation: normal to light touch in face, neck, and extremities. Pertinent abnormal exam findings include: no abnormalities noted VISIT DIAGNOSES/ IMPRESSION: Xin is a 18 y.o.female with post traumatic increase in chronic migraine headaches under better control with cyproheptadine and supplements. She continues to have significant bilateral hyperacusis. Therefore I recommend: 1. Headache treatment: Preventive: Continue to take Magnesium oxide 400 mg once a day and Riboflavin (vitamin B2) 200 mg twice a day for prevention of headaches. Continue cyproheptadine 2 tablets (8 mg) at bedtime. Treating a breakthrough headache (rescue plan) or prevention for loud events: Take Aleve 2 tablets or Ibuprofen 400-600 mg or Tylenol 1000 mg, over the counter dosing to relieve a bad headache. If needing more than 3 doses a week, call to consider increasing preventive medication. Lay down in a cool, dark quiet room, apply cold compress to forehead, chill, sleep. 2. Hyperacusis: *Wire Rope Sales Representative evaluation for noise cancelling ear plugs and diagnosis of hyperacusis. Will call you with more information this week. 3. Activity limitations: Daily low-moderate level relaxing activity is recommended. 4. Cognitive treatment/school accommodations: Full days of school, no accommodations needed. 5. Mood treatment: Carefully monitor behavior and attention, calmly discuss the proper behavior in non-emotional way to re-train proper behavior. Psychological counseling is recommended if stress is causing headaches. 6. Sleep disturbance: It is crucial to have a good sleep routine, 8-11 hours/night, limit napping, no interactive electronics before bed. Healthy Lifestyle Treatment: Schedule regulation/sleep/nutrition/ hydration: Be sure to establish a routine for sleeping, eating, hydrating and light exercise should be at the same time daily, (see schedule regulation handout). Again be sure to get 8-9 hours of restful sleep at night (see sleep hygiene handout). Limit naps to 30 minutes or less. Plan to do something fun and safe upon awakening. Be sure to drink and eat throughout the day (see Concussion Tips Handout). Increase fluid intake to at least 60-80 ounces/day, at least half of fluid intake should be water. Make sure to use relaxation to lessen stress as much as possible. (See handout). No caffeine, artificial sweeteners or energy drinks. Do not skip any meals, add more protein to diet at each meal, eat frequently. Return to [facility] for a follow up visit in 6 weeks with Aurelio Spivey CNP. 60 minute visit; > 50% of the [id number] visit time was dedicated to counseling and coordination of medical care. I discussed the expected recovery process for concussion with mom and patient and that her symptoms are more likely post traumatic onset of migraine headaches. We discussed the reason for her slow recovery time, she has been more compliant since her last visit but is still 2 months late with her follow up visit. I recommended continuing cyproheptadine and supplements and having an hydroelectric component machinist evaluation for noise sensitivity that persists even when headaches are under control. She is to continue to get adequate rest, good sleep, stress relief strategies, healthy nutrition, hydration, and information on how to promote healing and avoid aggravating factors were given to them. Treatment plan compliance, and the need to modify activities and prevention strategies including head protection were discussed. They voiced understanding and agreed with this plan of care. Normal [facility] CNOVon 01-23-2018 CNOV Office Visit ([facility]) -XIN CLARK ([id number]) 00 FDate Time Provider Department01/23/18 5:45 PM LOLA BURKETT (BATT PACKER) [facility] During your visit today, we recorded the following information about you: Temperature Pulse Respiration Weight 99 degrees 74/minute 16/minute 48.1 kg Last Period 12/26/17Lola Burkett CNP, JESSIKA 01/23/2018 6:37 PM SignedSubjectiveHPIPatient presents with:Nasal Congestion: drainage, chills, fever x 24 hoursDenies getting flu vaccine this season.Denies hx of asthma, bronchitis, pneumoniaDenies any otc treatment for symptoms.Review of SystemsConstitutional: Positive for chills, fever and malaise/fatigue.HENT: Positive for congestion and sore throat. Negative for ear pain.Eyes: Negative for discharge and redness.Respiratory: Positive for cough. Negative for hemoptysis, sputum production,shortness of breath and wheezing.Gastrointestinal: Negative for abdominal pain, diarrhea, nausea and vomiting.Skin: Negative for rash.Neurological: Positive for headaches.No past medical history on file.No past surgical history on file.ALLERGIES Review of patient's allergies indicates no known allergies.MEDICATIONSRIBOFLAV IN, VITAMIN B2, (VITAMIN B-2 ORAL) Take by mouth.MAGNESIUM OXIDE (MAG-OXIDE ORAL) Take by mouth.No family history on file.Social HistorySubstance Use Topics- Smoking status: Never Smoker- Smokeless tobacco: Never Used- Alcohol use Not on fileObjectivePhysical ExamConstitutional: She is well-developed, well-nourished, and in no distress.HENT:Head: Normocephalic.Right Ear: Tympanic membrane, external ear and ear canal normal.Left Ear: Tympanic membrane, external ear and ear canal normal.Nose: Rhinorrhea present. Right sinus exhibits no maxillary sinus tendernessand no frontal sinus tenderness. Left sinus exhibits no maxillary sinustenderness and no frontal sinus tenderness.Mouth/Throat: Posterior oropharyngeal erythema (injected with PND) present.Eyes: Conjunctivae are normal.Neck: Normal range of motion. Neck supple.Cardiovascular: Normal rate, regular rhythm and normal heart sounds.Pulmonary/Chest: Effort normal and breath sounds normal. No respiratorydistress. She has no wheezes.Abdominal: Soft. She exhibits no distension. There is no tenderness.Lymphadenopathy: She has no cervical adenopathy.Skin: Skin is warm and dry. No rash noted.Nursing note and vitals reviewed.ASSESSMENT/PLAN:1. Flu-like symptoms - ICD9: 780.99, ICD10: R68.31-xatq-GCSbx;48hrs onset-Tamiflu written rx given, reviewed with mother if pt symptoms worsen, maystart by tomorrow at noon for efffectiveness-reviewed viral etiology-supportive care, rest, fluids, analgesics PRN-F/u with pcp in 3-5 days or sooner if symptoms are not improving or worseningPrescription instructions reviewed with patient as applicable. Patient advisedif symptoms do not improve or if symptoms worsen sooner, to contact theirprimary care physician. Potential red flag symptoms discussed with thepatient. Reviewed appropriate action plan to take if red flag symptoms occur.Patient agreeable to treatment plan.Edward Weaver CNP, C PYTHON DEVELOPER 01/23/2018 6:30 PM SignedEXPRESS CARE PATIENT INFOINFLUENZA INTRODUCTIONInfluenza (commonly called the flu) is a highly contagious illness that canoccur in children or adults of any age. It occurs more often in the wintermonths because people spend more time in close contact with one another. Theflu is spread easily from zoeehs-sd-iutpti by coughing, sneezing, or touchingsurfaces.Every year, complications of the flu require more than 200,000 people in [facility] to be hospitalized. Serious illness is more likely in the veryyoung, older adults, women, and people who have certain healthproblems such as asthma or other forms of lung disease.There have been several widespread flu outbreaks (called pandemics), which ledto the deaths of many people worldwide. These outbreaks occurred when newstrains of influenza viruses formed (often from pigs or birds) and humansbecame infected because they had no immunity to these viruses.FLU SYMPTOMSSymptoms of seasonal flu can vary from person to person, but usually include:? Fever (temperature higher than 100?F or 37.8?C)? Headache and muscle aches? Fatigue? Cough and sore throat may also be presentPeople with the flu usually have a fever for two to five days. This isdifferent than fever caused by other upper respiratory viruses, which usuallyresolve after 24 to 48 hours.Some people have cold-like symptoms (runny nose, sore throat) during the fluwhile others have fever and muscle aches. Flu symptoms usually improve over twoto five days, although the illness may last for a week or more. Weakness andfatigue may persist for several weeksFlu complications ? Complications of influenza occur in some people; pneumoniais the most common complication. Pneumonia is a serious infection of the lungs,and is more likely to occur in people over the age of 65, people who live inlong term care facilities (nursing homes), and those with other illnesses suchas diabetes or conditions affecting the heart or lungs.FLU DIAGNOSISInfluenza is usually diagnosed based on symptoms (fever, cough and muscleaches). Lab testing for influenza is performed in certain cases, such as duringa new influenza outbreak in a community.FLU TREATMENTWhen to seek help ? Most people with the flu recover within one to two weekswithout treatment. However, serious complications of the flu can occur. Callyour doctor or nurse immediately if:? You feel short of breath or have trouble breathing? You have pain or pressure in your chest or stomach? You have signs of being dehydrated, such as dizziness when standing or notpassing urine? You feel confused? You cannot stop vomiting or you cannot drink enough fluidsThere are several groups of people who are at increased risk for flucomplications. These include women, young children (ANDlt;5 years ofage, and especially ANDlt;2 years of age), people ?65 years of age, and peoplewith certain diseases such as chronic lung disease (such as asthma), heartdisease, diabetes, immunosuppressing conditions (such as HIV infection ortransplantation), and some other diseases. If you or your child has flusymptoms and is at increased risk of flu complications, you should call yourhealthcare provider.Treat symptoms ? Treating the symptoms of influenza can help you to feelbetter, but will not make the flu go away faster.? Rest until the flu is fully resolved, especially if the illness has beensevere? Fluids ? Drink enough fluids so that you do not become dehydrated. One way tojudge if you are drinking enough is to look at the color of your urine.Normally, urine should be light yellow to nearly colorless. If you are drinkingenough, you should pass urine every three to five hours.? Acetaminophen (such as Tylenol? and other brands) can relieve fever,headache, and muscle aches. Aspirin, and medicines that include aspirin (eg,bismuth subsalicylate; PeptoBismol), are not recommended for children under 18because aspirin can lead to a serious disease called Xavi syndrome.? Cough medicines are not usually helpful; cough usually resolves withouttreatment. We do not recommend cough or cold medicine for children under agesix years.Antiviral treatment ? Antiviral medicines can be used to treat or preventinfluenza. When used as a treatment, the medicine does not eliminate flusymptoms, although it can reduce the severity and duration of symptoms by aboutone day. Not every person with influenza needs an antiviral medicine; thedecision is based upon your risk of developing complications of influenza.Antiviral treatment is most effective for seasonal influenza when it is takenwithin the first 48 hours of flu symptoms.Side effects ? Zanamivir and oseltamivir can cause mild side effects, includingnausea and vomiting; zanamivir, which is inhaled, can cause difficultybreathing in some cases. Most people are able to continue the medicine despitethe side effects.Antibiotics ? Antibiotics are NOT useful for treating viral illnesses such asinfluenza. Antibiotics should only used if there is a bacterial complication ofthe flu such as bacterial pneumonia, ear infection, or sinusitis. Antibioticscan cause side effects and lead to development of antibiotic resistance.Referring Provider: SELF [[id number]]Allergies As of Date: 01/23/2018(No Known Allergies)Date Reviewed: 01/23/2018Reviewed by: Suni Santamaria Ma - Fully AssessedReason for Visit: Nasal Congestion [235] Cmt: drainage, chills, fever x 24 hoursPrimary Visit Diagnosis:Flu-like symptoms [R68.89]Order(s):oseltamivir (TAMIFLU) 75 mg capsuleTake 1 capsule by mouth twice daily for 5 days.Disp: 10 capsuleRfl: 0Prescriptions as of 01/23/2018 Sig: VITAMIN B-2 ORAL Take by mouth. MAG-OXIDE ORAL Take by mouth. OSELTAMIVIR 75 MG CAPSULE Take 1 capsule by mouth twice*Problem List As Of Date: 01/23/2018(None) Other instructions from your clinician: EXPRESS CARE PATIENT INFO INFLUENZA INTRODUCTION Influenza (commonly called the flu) is a highly contagious illness that can occur in children or adults of any age. It occurs more often in the winter months because people spend more time in close contact with one another. The flu is spread easily from fkreoc-qv-kahifh by coughing, sneezing, or touching surfaces. Every year, complications of the flu require more than 200,000 people in the [place] to be hospitalized. Serious illness is more likely in the very young, older adults, women, and people who have certain health problems such as asthma or other forms of lung disease. There have been several widespread flu outbreaks (called pandemics), which led to the deaths of many people worldwide. These outbreaks occurred when new strains of influenza viruses formed (often from pigs or birds) and humans became infected because they had no immunity to these viruses. FLU SYMPTOMS Symptoms of seasonal flu can vary from person to person, but usually include: ? Fever (temperature higher than 100?F or 37.8?C) ? Headache and muscle aches ? Fatigue ? Cough and sore throat may also be present People with the flu usually have a fever for two to five days. This is different than fever caused by other upper respiratory viruses, which usually resolve after 24 to 48 hours. Some people have cold-like symptoms (runny nose, sore throat) during the flu while others have fever and muscle aches. Flu symptoms usually improve over two to five days, although the illness may last for a week or more. Weakness and fatigue may persist for several weeks Flu complications ? Complications of influenza occur in some people; pneumonia is the most common complication. Pneumonia is a serious infection of the lungs, and is more likely to occur in people over the age of 65, people who live in superintendent terminal care facilities (nursing homes), and those with other illnesses such as diabetes or conditions affecting the heart or lungs. FLU DIAGNOSIS Influenza is usually diagnosed based on symptoms (fever, cough and muscle aches). Lab testing for influenza is performed in certain cases, such as during a new influenza outbreak in a community. FLU TREATMENT When to seek help ? Most people with the flu recover within one to two weeks without treatment. However, serious complications of the flu can occur. Call your doctor or nurse immediately if: ? You feel short of breath or have trouble breathing ? You have pain or pressure in your chest or stomach ? You have signs of being dehydrated, such as dizziness when standing or not passing urine ? You feel confused ? You cannot stop vomiting or you cannot drink enough fluids There are several groups of people who are at increased risk for flu complications. These include women, young children (<5 years of age, and especially <2 years of age), people ?65 years of age, and people with certain diseases such as chronic lung disease (such as asthma), heart disease, diabetes, immunosuppressing conditions (such as HIV infection or transplantation), and some other diseases. If you or your child has flu symptoms and is at increased risk of flu complications, you should call your healthcare provider. Treat symptoms ? Treating the symptoms of influenza can help you to feel better, but will not make the flu go away faster. ? Rest until the flu is fully resolved, especially if the illness has been severe ? Fluids ? Drink enough fluids so that you do not become dehydrated. One way to picture frames inspector if you are drinking enough is to look at the color of your urine. Normally, urine should be light yellow to nearly colorless. If you are drinking enough, you should pass urine every three to five hours. ? Acetaminophen (such as Tylenol? and other brands) can relieve fever, headache, and muscle aches. Aspirin, and medicines that include aspirin (eg, bismuth subsalicylate; PeptoBismol), are not recommended for children under 18 because aspirin can lead to a serious disease called Xavi syndrome. ? Cough medicines are not usually helpful; cough usually resolves without treatment. We do not recommend cough or cold medicine for children under age six years. Antiviral treatment ? Antiviral medicines can be used to treat or prevent influenza. When used as a treatment, the medicine does not eliminate flu symptoms, although it can reduce the severity and duration of symptoms by about one day. Not every person with influenza needs an antiviral medicine; the decision is based upon your risk of developing complications of influenza. Antiviral treatment is most effective for seasonal influenza when it is taken within the first 48 hours of flu symptoms. Side effects ? Zanamivir and oseltamivir can cause mild side effects, including nausea and vomiting; zanamivir, which is inhaled, can cause difficulty breathing in some cases. Most people are able to continue the medicine despite the side effects. Antibiotics ? Antibiotics are NOT useful for treating viral illnesses such as influenza. Antibiotics should only used if there is a bacterial complication of the flu such as bacterial pneumonia, ear infection, or sinusitis. Antibiotics can cause side effects and lead to development of antibiotic resistance.Prescriptions ordered this encounter Disp Refills Start End OSELTAMIVIR 75 MG CAPSULE 10 c* 0 01/23/2018 01/28/2018 Class: Print RX Route: ORAL Sig: Take 1 capsule by mouth twice daily for 5 days.Disposition: Return if symptoms worsen or fail to improve.Follow-up and Disposition History RecordedLetter Rick Burkett CNP Urgent [id number] [facility] [id number]: [phone]/12/2018Xin Clark[address] [facility] [address]Eu Whom it May Concern:This is to certify that Xin Clark was seen at our office for medicalcare. Xin may return to school on 01/25/2018.If you have any questions please feel free to call.Sincerely:Lola Burkett CNPEncounter Number: [id number] Status:Closed by LOLA BURKETT on 01/23/18 [facility] PROGRESSon 01-23-2018 PROGRESS HNO ID: [id number] thor: Lola Renee (Manager Assurance) JESSIKA BurkettService: (none)Author Type: Nurse PractitionerType: Progress NotesFiled: 01/23/2018 6:37 PMNote Text:SubjectiveHPIPatient presents with:Nasal Congestion: drainage, chills, fever x 24 hoursDenies getting flu vaccine this season.Denies hx of asthma, bronchitis, pneumoniaDenies any otc treatment for symptoms.Review of SystemsConstitutional: Positive for chills, fever and malaise/fatigue.HENT: Positive for congestion and sore throat. Negative for ear pain.Eyes: Negative for discharge and redness.Respiratory: Positive for cough. Negative for hemoptysis, sputumproduction, shortness of breath and wheezing.Gastrointestinal: Negative for abdominal pain, diarrhea, nausea andvomiting.Skin: Negative for rash.Neurological: Positive for headaches.No past medical history on file.No past surgical history on file.ALLERGIES Review of patient's allergies indicates no known allergies.MEDICATIONSRIBOFLAV IN, VITAMIN B2, (VITAMIN B-2 ORAL) Take by mouth.MAGNESIUM OXIDE (MAG-OXIDE ORAL) Take by mouth.No family history on file.Social HistorySubstance Use Topics- Smoking status: Never Smoker- Smokeless tobacco: Never Used- Alcohol use Not on fileObjectivePhysical ExamConstitutional: She is well-developed, well-nourished, and in no distress.HENT:Head: Normocephalic.Right Ear: Tympanic membrane, external ear and ear canal normal.Left Ear: Tympanic membrane, external ear and ear canal normal.Nose: Rhinorrhea present. Right sinus exhibits no maxillary sinustenderness and no frontal sinus tenderness. Left sinus exhibits nomaxillary sinus tenderness and no frontal sinus tenderness.Mouth/Throat: Posterior oropharyngeal erythema (injected with PND)present.Eyes: Conjunctivae are normal.Neck: Normal range of motion. Neck supple.Cardiovascular: Normal rate, regular rhythm and normal heart sounds.Pulmonary/Chest: Effort normal and breath sounds normal. No respiratorydistress. She has no wheezes.Abdominal: Soft. She exhibits no distension. There is no tenderness.Lymphadenopathy: She has no cervical adenopathy.Skin: Skin is warm and dry. No rash noted.Nursing note and vitals reviewed.ASSESSMENT/PLAN:1. Flu-like symptoms - ICD9: 780.99, ICD10: R68.89-mild-<48hrs onset-Tamiflu written rx given, reviewed with mother if pt symptoms worsen, maystart by tomorrow at noon for efffectiveness-reviewed viral etiology-supportive care, rest, fluids, analgesics PRN-F/u with pcp in 3-5 days or sooner if symptoms are not improving orworseningPrescription instructions reviewed with patient as applicable. Patientadvised if symptoms do not improve or if symptoms worsen sooner, tocontact their primary care physician. Potential red flag symptomsdiscussed with the patient. Reviewed appropriate action plan to take ifred flag symptoms occur. Patient agreeable to treatment plan.Lola Burkett CNP [facility] Office Visiton 03-17-2017 Documentation of current medications (procedure) Done Invalid Interpretation Code [employer] Work Phone: [phone] Tobacco smoking status NHIS Never Invalid Interpretation Code [employer] Work Phone: [phone] Tobacco use CPHS Never smoker Invalid Interpretation Code [employer] Work Phone: [phone] Vital Signs Date Time Vital Sign Value Performing Clinician Facility 01-25-2025 16:42-0400 Diastolic blood pressure 74 mm[Hg] Perla Duncan APRN.C [employer] DEVEL[employer] Work Phone: [facility] Comment on above: post nexplanon remov al 01-25-2025 16:42-0400 Heart rate 83 /min Perla Duncan APRN.C P[employer]ON DEVELOPER Work Phone: [facility] 01-25-2025 16:42-0400 Systolic blood pressure 106 mm[Hg] Perla Duncan APRN.C PYTHON DEVELOPER Work Phone: [facility] Comment on above: post nexplanon remov al 01-25-2025 16:07-0400 Body mass index (BMI) [Ratio] 20.8 kg/m2 Perla Hammondhrie [employer] DE[employer]ONER.C PYTHON DEVELOPER Work Phone: [facility] 01-25-2025 16:07-0400 Body weight 50.35 kg Perla Duncan APRN.C P[employer]THON DEVELOPER Work Phone: [facility] 12-21-2024 09:22-0500 Body height 155.6 cm Perla Duncan APRN.C P[employer]THON DEVELOPER Work Phone: [facility] 12-21-2024 09:22-0500 Body mass index (BMI) [Ratio] 20.99 kg/m2 Perla Hammondhrie [employer].C PYTHON DEVELOPER Work Phone: [facility] 12-21-2024 09:22-0500 Body weight 50.8 kg Perla Duncan APRN.C P[employer]THON DEVELOPER Work Phone: [facility] 12-21-2024 09:22-0500 Diastolic blood pressure 62 mm[Hg] Perla Hammondhrie [employer] DE[employer]ER.C PYTHON DEVELOPER Work Phone: [facility] 12-21-2024 09:22-0500 Systolic blood pressure 114 mm[Hg] Perla Hammondhrie [employer]ER.C PYTHON DEVELOPER Work Phone: [facility] 12-20-2023 09:43-0500 Body height 156.2 cm Perla Duncan APRN.C P[employer]ON DEVELOPER Work Phone: [facility] 12-20-2023 09:43-0500 Body weight 50.89 kg Perla Duncan APRN.C PYTHON DEVELOPER Work Phone: [facility] 12-20-2023 09:43-0500 Diastolic blood pressure 68 mm[Hg] Perla Hammondhrie [employer].C PYTHON DEVELOPER Work Phone: [facility] 12-20-2023 09:43-0500 Systolic blood pressure 98 mm[Hg] Perla Hammondhrie [employer].C PYTHON DEVELOPER Work Phone: [facility] 12-17-2022 08:55-0500 Body height 156.2 cm Perla Duncan APRN.C PYTHON DEVELOPER Work Phone: [facility] 12-17-2022 08:55-0500 Body weight 48.53 kg Perla Hammondhrie [employer].C PYTHON DEVELOPER Work Phone: [facility] 12-17-2022 08:55-0500 Diastolic blood pressure 64 mm[Hg] Perla Duncan [employer].C PYTHON DEVELOPER Work Phone: [facility] 12-17-2022 08:55-0500 Systolic blood pressure 94 mm[Hg] Perla Duncan [employer].C PYTHON DEVELOPER Work Phone: [facility] 06-08-2022 15:10-0400 Body weight 47.17 kg Nurse Ws Work Phone: [facility] 02-18-2022 09:29-0400 Body weight 48.08 kg Perla Duncan APRN.C PYTHON DEVELOPER Work Phone: [facility] 02-18-2022 09:29-0400 Diastolic blood pressure 60 mm[Hg] Perla Hammondhrie [employer]ER.C PYTHON DEVELOPER Work Phone: [facility] 02-18-2022 09:29-0400 Systolic blood pressure 100 mm[Hg] Perla Hammondhrie [employer]ER.C PYTHON DEVELOPER Work Phone: [facility] 03-17-2017 08:28-0400 BMI (Body Mass Index) 20.67 kg/m2 Kita Aguero LPN [facility] Work Phone: 03-17-2017 08:28-0400 Height 154.94 cm Kita Aguero LPN [facility] Work Phone: 03-17-2017 [phone] Weight 49.62 kg Kita Aguero [facility]AC[facility] Work Phone: Encounters Encounter Date Encounter Type Care Provider Facility Start: 05-06-2025 ambulatory [facility] Facility:[facility] Start: 02-12-2025 End: 02-12-2025 ambulatory [facility] Facility:[facility] Start: 01-25-2025 End: 01-25-2025 ambulatory PERLA DUNCAN Facility:[facility] Start: 01-25-2025 End: 01-25-2025 Patient encounter procedure Perla Duncan APRN.C PYTHON DEVELOPER Work Phone: OB/Gynecology Comment on above: Encounter for Nexpla non removal (Primary Dx) Start: 12-21-2024 End: 12-21-2024 ambulatory PERLA DUNCAN Facility:[facility] Start: 12-21-2024 End: 12-21-2024 Patient encounter procedure Perla Duncan APRN.C PYTHON DEVELOPER Work Phone: OB/Gynecology Comment on above: Encounter for gyneco logical examination (general) (routine) without abnormal findings (Primary Dx); Nexplanon removal Start: 12-21-2024 End: 12-21-2024 Patient encounter status Perla Duncan APRN.C PYTHON DEVELOPER Work Phone: [facility] Start: 09-11-2024 End: 09-11-2024 ambulatory Carlos ENGLISH Facility:[facility] Start: 09-11-2024 End: 09-11-2024 ambulatory Carlos ENGLISH Facility:[facility] Start: 12-20-2023 End: 12-20-2023 Patient encounter procedure Perla Duncan APRN.C PYTHON DEVELOPER Work Phone: OB/Gynecology Comment on above: Encounter for gyneco logical examination with abnormal finding (Primary Dx); Dysuria; Urinary frequency; Screen for STD (sexually transmitted disease) Start: 12-20-2023 End: 12-20-2023 Patient encounter status Perla Duncan APRN.C PYTHON DEVELOPER Work Phone: [facility] Work Phone: Start: 12-17-2022 End: 12-17-2022 Patient encounter procedure Perla Duncan APRN.C PYTHON DEVELOPER Work Phone: OB/Gynecology Comment on above: Encounter for gyneco logical examination (general) (routine) without abnormal findings (Primary Dx); Screening for cervical cancer; Screen for STD (sexually transmitted disease) Start: 12-17-2022 End: 12-17-2022 Patient encounter status Perla Duncan APRN.C PYTHON DEVELOPER Work Phone: OB/Gynecology Start: 06-17-2022 ambulatory Perla KAYE RN.C PYTHON DEVELOPER Work Phone: OB/Gynecology Comment on above: First time pain Start: 06-08-2022 End: 06-08-2022 Nursing evaluation of patient and report Nurse Supervisor [employer] [facility] Work Phone: OB/Gynecology Comment on above: Need for prophylacti c vaccination/inoculation against viral disease (Primary Dx) Start: 02-18-2022 End: 02-18-2022 Patient encounter procedure Perla Duncan APRN.C PYTHON DEVELOPER Work Phone: OB/Gynecology Comment on above: Insertion of implant able subdermal contraceptive (Primary Dx) Start: 02-05-2022 End: 02-05-2022 Nursing evaluation of patient and report Nurse Supervisor [employer] [facility] Work Phone: OB/Gynecology Comment on above: Need for prophylacti c vaccination/inoculation against viral disease Start: 01-23-2018 End: 01-24-2018 Ambulatory [facility] Procedures Date Procedure Procedure Detail Performing Clinician Start: 12-20-2023 Urnls dip stick/tabl et rgnt auto w/o microscopy Perla Duncan APRN.C P[employer] DEVELOPER Work Phone: Start: 02-18-2022 Urine test visual color cmprsn meths Perla Duncan APRN.C PYTHON DEVELOPER Work Phone: Plan of Treatment Date Care Activity Detail Author Start: 05-19-2031 Urine microalbumin profile [facility] Start: 12-24-2025 End: 12-24-2025 Patient encounter procedure 12/24/2025 10:30 AM EST Office Visit OB/Gynecology [address] [place] [address] Perla Duncan APRN.C PYTHON DEVELOPER [address] [place] [address] [address] ANNUAL OB/Gynecology Comment on above: ANNUAL Start: 12-17-2025 Screening for malign ant neoplasm of cervix [facility] Start: 01-25-2025 End: 01-25-2025 Patient encounter procedure 01/25/2025 4:00 PM EDT Office Visit OB/Gynecology [address] [place] [address] Perla Duncan, PET [employer] DEBONER.C PYTHON DEVELOPER [address] [place] [address] NEXPLANON REMOVAL OB/Gynecology Comment on above: NEXPLANON REMOVAL Start: 07-15-2024 Covid-19 Vaccine ( season) Covid-19 Vaccine () [facility] Start: 12-17-2023 GC (Gonorrhea) Screening (18) GC (Gonorrhea) Screening (18) [facility] Start: 12-17-2023 Screening for Chlamy shirlene trachomatis Chlamydia Screening () [facility] Start: 11-14-2023 [facility] Start: 07-15-2023 Covid-19 Vaccine ( season) Covid-19 Vaccine () [facility] Start: 11-14-2022 DEPRESSION ASSESSMENT DEPRESSION ASS ESSMENT [facility] Start: 07-15-2022 Influenza vaccination INFLUENZA (#1) [facility] Start: 06-09-2022 HPV VACCINE (3 - 3-d ose series) HPV VACCINE (3 - 3-dose series) [facility] Start: 2021 PAP TESTING PAP TESTING [facility] Start: 12-11-2020 COVID-19 VACCINE (2 - Pfizer 3-dose series) COVID-19 VACCINE (2 - Pfizer 3-dose series) [facility] Start: 12-11-2020 COVID-19 VACCINE (2 - Pfizer series) COVID-19 VACCINE (2 - Pfizer series) [facility] Start: 2018 Anxiety Screening Anxiety Screening [facility] Start: 2018 CHLAMYDIA SCREENING (18-24) CHLAMYDIA SCREENING (18-24) [facility] Start: 2018 Depression Screening Depression Scre ening [facility] Start: 2018 GC (GONORRHEA) SCREENING (18-24) GC (GONORRHEA) SCREENING (18-24) [facility] Start: 2018 HEPATITIS C SCREENING HEPATITIS C [facility] Start: 2018 Hepatitis C screening Hepatitis C [facility] Start: 2018 HIV SCREENING HIV SCREENING [facility] Start: 2018 HIV screening HIV Screening [facility] Start: 03-17-2017 End: 03-17-2017 Appointment Appointment [facility] Work Phone: Start: 03-17-2017 End: 03-17-2017 X-ray exam of elbow X-Ray, Elbow [facility] Work Phone: Start: 2016 Meningococcal B Vaccine: Consider Based On Risk (1 of 2 - Patient Seeks Protection) Meningococcal B Vaccine: Consider Based On Risk (1 of 2 - Patient Seeks Protection) [facility] Start: 2014 PEDS TO ADULT TRANSITION ANNUAL ASSESSMENT PEDS TO ADULT TRANSITION ANNUAL ASSESSMENT [facility] Start: 2012 Adult depression screening assessment DEPRESSION SCREENING [facility] Start: 2012 PEDS TO ADULT TRANSITION INITIAL DISCUSSION PEDS TO ADULT TRANSITION INITIAL DISCUSSION [facility] Start: 2010 MENINGOCOCCAL B: Consider based on risk (1 of 2 - Risk Bexsero 2-dose series) MENINGOCOCCAL B: Consider based on risk (1 of 2 - Risk Bexsero 2-dose series) [facility] Bacteria identified in Urine by Culture URINE CULTURE Microbiology Routine Dysuria Urinary frequency 12/20/2023 10:35 AM EST [facility] Work Phone: Chlamydia trachomatis+Neisseria gonorrhoeae DNA [Presence] in Unspecified specimen by LISANDRA with probe detection GC/CHLAMYDIA DNA DET Lab Routine Encounter for gynecological examination (general) (routine) without abnormal findings Screen for STD (sexually transmitted disease) 12/17/2022 9:21 AM [facility] Work Phone: Chlamydia trachomatis+Neisseria gonorrhoeae DNA [Presence] in Unspecified specimen by LISANDRA with probe detection GONORRHEA/CHLAMYDIA NAAT Lab Routine Dysuria Screen for STD (sexually transmitted disease) 12/20/2023 10:35 AM [facility] Work Phone: NEXPLANON INSERTION NEXPLANON IN SERTION Procedures Routine Insertion of implantable subdermal contraceptive Ordered: 02/18/2022 [facility] Work Phone: Comment on above: Ordered: 02/18/2022 NEXPLANON REMOVAL NEXPLANON KARLIE YARITZA Procedures Routine Nexplanon removal Ordered: 12/21/2024 [facility] Work Phone: Comment on above: Ordered: 12/21/2024 PAP FLUID CERVICAL SCREENING PAP FLUID CERVICAL SCREENING Lab Routine Encounter for gynecological examination (general) (routine) without abnormal findings Screening for cervical cancer 12/17/2022 9:21 AM [facility] Work Phone: Patient Education ARTHRALGIA [facility] Work Phone: Therapeutic prophylactic/dx injection subq/im THER/PROPH/DIAG INJ, SC/IM Procedures Routine Need for prophylactic vaccination/inoculation against viral disease Ordered: 02/05/2022 [facility] Work Phone: Comment on above: Ordered: 02/05/2022 [facility] Immunizations Immunization Date Immunization Notes Care Provider Paul mederos 06-08-2022 Human Papillomavirus 9-valent vaccine Nurse Wstr Work Phone: [facility] 02-05-2022 Human Papillomavirus 9-valent vaccine Nurse Wstr Work Phone: [facility] Work Phone: 12-10-2021 Human Papillomavirus 9-valent vaccine Nurse Wstr Work Phone: [facility] 05-19-2021 tetanus toxoid, redu rob diphtheria toxoid, and acellular pertussis vaccine, adsorbed Nurse Wstr Work Phone: [facility] Work Phone: 11-20-2020 COVID-19 vaccine, ag e 12+ yr (PFIZER-BIONTECH - PURPLE TOP) Nurse Wstr Work Phone: [facility] Work Phone: 10-04-2018 hepatitis A and hepatitis B vaccine, pediatric/adolescent Nurse Wstr Work Phone: [facility] Work Phone: 10-04-2018 hepatitis A vaccine, pediatric/adolescent dosage, 2 dose schedule Nurse Wstr Work Phone: [facility] Work Phone: 10-04-2018 meningococcal polysaccharide (groups A, C, Y and W-135) diphtheria toxoid conjugate vaccine (MCV4P) Nurse Wstr Work Phone: [facility] Work Phone: 06-18-2016 hepatitis A and hepatitis B vaccine, pediatric/adolescent Nurse Wstr Work Phone: [facility] Work Phone: 06-18-2016 hepatitis A vaccine, pediatric/adolescent dosage, 2 dose schedule Nurse Wstr Work Phone: [facility] Work Phone: 10-10-2012 meningococcal polysaccharide (groups A, C, Y and W-135) diphtheria toxoid conjugate vaccine (MCV4P) Nurse Wstr Work Phone: [facility] Work Phone: 10-10-2012 tetanus toxoid, redu rob diphtheria toxoid, and acellular pertussis vaccine, adsorbed Nurse Wstr Work Phone: [facility] Work Phone: 10-10-2012 varicella virus vaccine Nurs e Wstr Work Phone: [facility] Work Phone: 08-31-2005 diphtheria, tetanus toxoids and acellular pertussis vaccine Nurse Wstr Work Phone: [facility] Work Phone: 08-31-2005 measles, mumps and rubella virus vaccine Nurse Wstr Work Phone: [facility] Work Phone: 08-31-2005 poliovirus vaccine, inactivated Nurse Wstr Work Phone: [facility] Work Phone: 10-30-2001 diphtheria, tetanus toxoids and acellular pertussis vaccine Nurse Wstr Work Phone: [facility] Work Phone: 08-07-2001 measles, mumps and rubella virus vaccine Nurse Wstr Work Phone: [facility] Work Phone: 08-07-2001 varicella virus vaccine Nurs e Wstr Work Phone: [facility] Work Phone: 05-11-2001 poliovirus vaccine, inactivated Nurse Wstr Work Phone: [facility] Work Phone: 02-27-2001 diphtheria, tetanus toxoids and acellular pertussis vaccine Nurse Wstr Work Phone: [facility] Work Phone: 02-27-2001 haemophilus influenz ae type b vaccine, PRP-T conjugate Nurse Wstr Work Phone: [facility] Work Phone: 02-27-2001 hepatitis B vaccine, pediatric or pediatric/adolescent dosage Nurse Wstr Work Phone: [facility] Work Phone: 02-27-2001 pneumococcal conjuga te vaccine, 13 valent Nurse Wstr Work Phone: [facility] Work Phone: 2000 diphtheria, tetanus toxoids and acellular pertussis vaccine Nurse Wstr Work Phone: [facility] Work Phone: 2000 haemophilus influenz ae type b vaccine, PRP-T conjugate Nurse Wstr Work Phone: [facility] Work Phone: 2000 pneumococcal conjuga te vaccine, 13 valent Nurse Wstr Work Phone: [facility] Work Phone: 2000 poliovirus vaccine, inactivated Nurse Wstr Work Phone: [facility] Work Phone: 2000 diphtheria, tetanus toxoids and acellular pertussis vaccine Nurse Wstr Work Phone: [facility] Work Phone: 2000 haemophilus influenz ae type b vaccine, PRP-T conjugate Nurse Wstr Work Phone: [facility] Work Phone: 2000 pneumococcal conjuga te vaccine, 13 valent Nurse Wstr Work Phone: [facility] Work Phone: 2000 poliovirus vaccine, inactivated Nurse Wstr Work Phone: [facility] Work Phone: 2000 hepatitis B vaccine, pediatric or pediatric/adolescent dosage Nurse Wstr Work Phone: [facility] Work Phone: 2000 hepatitis B vaccine, pediatric or pediatric/adolescent dosage Nurse Wstr Work Phone: [facility] Work Phone: Payers Date Payer Category Payer Self-pay 2021 Private Health Insurance [employer] [id number] 2021 Unknown [employer] PPO [id number] 2021-Present [phone] [facility] [address] [place] [id number] PPO [id number] 2021 Unknown [employer] PPO [id number] 2021-Present [phone] [id number] PPO [id number] 2021 Unknown [id number] Unknown [id number] Unknown [id number] Unknown [id number] Unknown [id number] Unknown [id number] Social History Date Type Detail Facility Start: 01-23-2018 End: 12-20-2023 Tobacco smoking status NHIS Never smoked tobacco [facility] Work Phone: Start: 01-23-2018 End: 12-20-2023 Tobacco use and exposure Smokeless tobacco non-user [facility] Work Phone: Start: 12-10-2021 End: 01-26-2025 Alcohol intake Lifetime non-drinker (finding) [facility] Start: 12-10-2021 History SDOH Alcohol Frequency 1 [facility] Start: 2000 Sex Assigned At Female [facility] Start: 05-17-2022 End: 05-27-2022 Exposure to SARS-CoV-2 (event) Not sure [facility] Work Phone: Start: 12-20-2023 End: 01-25-2025 History of Social function [facility] Start: 12-20-2023 End: 01-25-2025 Tobacco use panel [facility] National Score (1-10 0), lower number is lower risk 87 [facility] Start: 12-04-2021 Gender identity Identifies as female gender (finding) [facility] Start: 12-04-2021 Sexual orientation Heterosexual (fin ding) [facility] Clinical Notes 02-05-2022 to 01-25-2025 Patient InstructionsPerla Duncan APRN.JESSIKA - 01/25/2025 4:01 PM EDTPatient InstructionsPerla Duncan APRN.JESSIKA - 12/21/2024 9:21 AM ESTPatient InstructionsAmy LORE Duncan.JESSIKA - 12/17/2022 8:53 AM EST Note Date & Type Note Facility 01-25-2025 Instructions Juan Turner MA - 01/25/2025 4:39 PM EDT NEXPLANON PATIENT EDUCATION You may remove dressing in 24 hours. Expect some bruising. You may take over the counter pain medication (i.e. Tylenol, motrin, advil, etc) if you have discomfort. documented in this encounter [facility] 01-25-2025 Note HNO ID: [id number] Author: PERLA DUNCAN APRN.JESSIKA Service: ? Author Type: Nurse Practitioner Type: Progress Notes Filed: 01/26/2025 09:40 Note Text: Xin is a 24 year old Female who presents for Nexplanon removal for desires conception. UNIVERSAL PROTOCOL / SAFETY CHECKLIST Procedure to be Performed: Nexplanon removal Sign In: A Moment of CARE was completed. Appropriate PPE (Personal Protective Equipment) worn by all providers involved with the procedure. Special equipment not required. Patient/Surrogate Stated/Verified: Patient name, Date of , Relevant allergies, and The intended procedure Time Out: Relevant labs, photos, and/or imaging studies are not applicable. Intended patient and procedure match the source document(s) (e.g. consent, HANDP, associated studies [imaging, pathology]) are not applicable. Consent obtained and matches the intended procedure. Yes. Correct side/site is not applicable. Medications required for this procedure are verified. Fire risk assessed and is not applicable. Implants: are not applicable. Sign Out: Specimens not collected. All instruments, equipment, possible retained foreign bodies are accounted for. Yes. The post-procedure plan of care has been communicated to the patient or surrogate. TECHNIQUE: Patient placed in supine position with left arm bent at the elbow and placed over the head. Skin cleansed with betadine. 1.5mL of 1% lidocaine with epi injected subQ along insertion site. Scalpel used to made a 5mm stab incision superficially at distal end of Nexplanon. Device removed under sterile technique with a small hemostat. Sterile pressure dressing applied. AANDP: 24 year old Female here for Nexplanon removal Nexplanon removed intact without difficulty. The patient was instructed to remove the dressing after 24 hours. Contraceptive plans Natural family planning Perla Duncan APRN.[facility] 01-25-2025 History of Presen t illness Narrative Xin is a 24 year old Female who presents for Nexplanon removal for desires conception. UNIVERSAL PROTOCOL / SAFETY CHECKLIST Procedure to be Performed: Nexplanon removal Sign In: A Moment of CARE was completed. Appropriate PPE (Personal Protective Equipment) worn by all providers involved with the procedure. Special equipment not required. Patient/Surrogate Stated/Verified: Patient name, Date of , Relevant allergies, and The intended procedure Time Out: Relevant labs, photos, and/or imaging studies are not applicable. Intended patient and procedure match the source document(s) (e.g. consent, H&P, associated studies [imaging, pathology]) are not applicable. Consent obtained and matches the intended procedure. Yes. Correct side/site is not applicable. Medications required for this procedure are verified. Fire risk assessed and is not applicable. Implants: are not applicable. Sign Out: Specimens not collected. All instruments, equipment, possible retained foreign bodies are accounted for. Yes. The post-procedure plan of care has been communicated to the patient or surrogate. TECHNIQUE: Patient placed in supine position with left arm bent at the elbow and placed over the head. Skin cleansed with betadine. 1.5mL of 1% lidocaine with epi injected subQ along insertion site. Scalpel used to made a 5mm stab incision superficially at distal end of Nexplanon. Device removed under sterile technique with a small hemostat. Sterile pressure dressing applied. A&P: 24 year old Female here for Nexplanon removal Nexplanon removed intact without difficulty. The patient was instructed to remove the dressing after 24 hours. Contraceptive plans Natural family planning Perla Duncan APRN.CNP documented in this encounter [facility] 12-21-2024 Instructions Perla Duncan APRN.CNP - 12/21/2024 9:53 AM EST VCF Contraceptive strip/membrane vitamin with folic acid documented in this encounter [facility] 12-21-2024 Note HNO ID: [id number] Author: PERLA DUNCAN APRN.CNP Service: ? Author Type: Nurse Practitioner Type: Progress Notes Filed: 12/21/2024 10:19 Note Text: Imaging Scheduler offered: Patient declines. Xin is a 24 year old who presents for an annual gynecologic exam without complaints. 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 Still get period: Yes Bleeding amount bothersome: No Bleeding between periods: Yes Period symptoms: Breast tenderness; Cramps; Mood change Menses: irregular spotting since Nexplanon inserted. Contraception: Nexplanon 02/18/2022 HPV vaccine: Yes Last Pap: 12/17/2022 normal HPV: N/A History of abnormal pap: No Last mammogram: never Sexually active: Yes History of STDS: None Patient concerns for STD exposure: No. Time with current partner: 2.5 years Pain with intercourse: No Postcoital bleeding: No Some documentation from previous visit of 12/20/2023 was copied and pasted, documentation has been reviewed and edited as necessary for today's visit. 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 PAST SURGICAL HISTORY Procedure Laterality Date NEXPLANON INSERTION Left 02/18/2022 TOOTH EXTRACTION wisdom teeth FAMILY HISTORY Problem Relation Age of Onset Cancer Father other (brain tumor) Father - surgery, doing well - chordoma other (precancerous skin lesions) Maternal Grandfather Heart Attack Paternal Grandfather Alcohol abuse Paternal Grandfather SOCIAL HISTORY Social History Tobacco Use Smoking status: Never Smokeless tobacco: Never Vaping Use Vaping status: Never Used Substance Use Topics Alcohol use: Never Drug use: Never REVIEW OF SYSTEMS Abdomen: No abdominal pain, nausea, vomiting, diarrhea, or constipation. No bloating, early satiety, indigestion, or increased flatulence. Bladder: No dysuria, gross hematuria, urinary frequency, urinary urgency, or incontinence. Breast: No breast lumps, nipple d/c, overlying skin changes, redness or skin retraction. Allergies and current medication updated:Yes SENSITIVE EXAM: The sensitive examination was discussed with the Patient or Patient's Authorized Pin Machine Tender. As applicable, any other physician, advance practice provider, medical student, or other health professional student that will be observing or involved in the sensitive examination for educational or training purposes was discussed with the Patient or Authorized Pin Machine Tender. The Patient or Authorized Pin Machine Tender has agreed to proceed with the sensitive examination. (Sensitive examination includes inspection and/or palpation of the breasts, pelvis, prostate and anorectal regions). EXAM: BP 114/62 Ht 5' 1.25 (1.56m) Wt 112 lb (50.8kg) LMP 12/07/2024 BMI 20.98 kg/(m2). GENERAL: pleasant, female in no apparent distress HEENT: Normocephalic, atraumatic, mucus membranes moist, and no lesions NECK: Supple, full range of motion, no adenopathy, and thyroid normal DERMATOLOGY: Normal, without lesions, non-icteric, and non-hirsute Nexplanon in proper position left arm BREAST: soft, non-tender, symmetric, no dominant mass, normal nipple-areolar complex, no lymphadenopathy, and no nipple discharge CHEST: Normal inspiratory effort ABDOMEN: soft, non-tender, and no masses PELVIC: external genitalia normal, normal Bartholin's glands, urethra, Chickasha's glands, no vulvar lesions, no cervical lesions, good vaginal support, dark blood present, normal appearing perineal body and perianal region BIMANUAL: uterus normal size, shape and consistency, no adnexal masses, and non-tender RECTOVAGINAL: deferred. NEURO: alert and oriented x3,exam grossly non-focal EXTREMITIES: normal ASSESSMENT/PLAN: 1) Health maintenance: Pap/HPV up to date. Nutrition, exercise and routine health maintenance exams reviewed. HPV vaccine: completed series 2) Contraception: Nexplanon. Contraceptive options reviewed and information provided. Order for Nexplanon removal. Plans Natural family planning. Recommend condom, VCF strips and PNVFA. 3) STD screening: Declined STD check. 4) Follow up one year or sooner as needed Perla Duncan APRN.[facility] 12-21-2024 History of Presen t illness Narrative Imaging Scheduler offered: Patient declines. Xin is a 24 year old who presents for an annual gynecologic exam without complaints. 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 Still get period: Yes Bleeding amount bothersome: No Bleeding between periods: Yes Period symptoms: Breast tenderness; Cramps; Mood change Menses: irregular spotting since Nexplanon inserted. Contraception: Nexplanon 02/18/2022 HPV vaccine: Yes Last Pap: 12/17/2022 normal HPV: N/A History of abnormal pap: No Last mammogram: never Sexually active: Yes History of STDS: None Patient concerns for STD exposure: No. Time with current partner: 2.5 years Pain with intercourse: No Postcoital bleeding: No Some documentation from previous visit of 12/20/2023 was copied and pasted, documentation has been reviewed and edited as necessary for today's visit. 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 PAST SURGICAL HISTORY Procedure Laterality Date NEXPLANON INSERTION Left 02/18/2022 TOOTH EXTRACTION wisdom teeth FAMILY HISTORY Problem Relation Age of Onset Cancer Father other (brain tumor) Father - surgery, doing well - chordoma other (precancerous skin lesions) Maternal Grandfather Heart Attack Paternal Grandfather Alcohol abuse Paternal Grandfather SOCIAL HISTORY Social History Tobacco Use Smoking status: Never Smokeless tobacco: Never Vaping Use Vaping status: Never Used Substance Use Topics Alcohol use: Never Drug use: Never REVIEW OF SYSTEMS Abdomen: No abdominal pain, nausea, vomiting, diarrhea, or constipation. No bloating, early satiety, indigestion, or increased flatulence. Bladder: No dysuria, gross hematuria, urinary frequency, urinary urgency, or incontinence. Breast: No breast lumps, nipple d/c, overlying skin changes, redness or skin retraction. Allergies and current medication updated:Yes SENSITIVE EXAM: The sensitive examination was discussed with the Patient or Patient's Authorized Pin Machine Tender. As applicable, any other physician, advance practice provider, medical student, or other health professional student that will be observing or involved in the sensitive examination for educational or training purposes was discussed with the Patient or Authorized Pin Machine Tender. The Patient or Authorized Pin Machine Tender has agreed to proceed with the sensitive examination. (Sensitive examination includes inspection and/or palpation of the breasts, pelvis, prostate and anorectal regions). EXAM: BP 114/62 Ht 5' 1.25 (1.56m) Wt 112 lb (50.8kg) LMP 12/07/2024 BMI 20.98 kg/(m^2). GENERAL: pleasant, female in no apparent distress HEENT: Normocephalic, atraumatic, mucus membranes moist, and no lesions NECK: Supple, full range of motion, no adenopathy, and thyroid normal DERMATOLOGY: Normal, without lesions, non-icteric, and non-hirsute Nexplanon in proper position left arm BREAST: soft, non-tender, symmetric, no dominant mass, normal nipple-areolar complex, no lymphadenopathy, and no nipple discharge CHEST: Normal inspiratory effort ABDOMEN: soft, non-tender, and no masses PELVIC: external genitalia normal, normal Bartholin's glands, urethra, Chickasha's glands, no vulvar lesions, no cervical lesions, good vaginal support, dark blood present, normal appearing perineal body and perianal region BIMANUAL: uterus normal size, shape and consistency, no adnexal masses, and non-tender RECTOVAGINAL: deferred. NEURO: alert and oriented x3,exam grossly non-focal EXTREMITIES: normal ASSESSMENT/PLAN: 1) Health maintenance: Pap/HPV up to date. Nutrition, exercise and routine health maintenance exams reviewed. HPV vaccine: completed series 2) Contraception: Nexplanon. Contraceptive options reviewed and information provided. Order for Nexplanon removal. Plans Natural family planning. Recommend condom, VCF strips and PNVFA. 3) STD screening: Declined STD check. 4) Follow up one year or sooner as needed Perla Duncan APRN.JESSIKA documented in this encounter [facility] 12-20-2023 Instructions Perla Duncan APRN.JESSIKA - 12/20/2023 10:20 AM EST Cystex supplement and push fluids at onset of any urinary symptoms Avoid bladder irritants - spicy, citrus, tomatoes, smoking, coffee, tea, pop, carbonation, artificial sweeteners and alcohol. documented in this encounter [facility] 12-20-2023 History of Presen t illness Narrative Imaging Scheduler offered: Patient declines. Xin is a 23 year old who presents for an annual gynecologic exam with complaints, UTI symptoms for past 10 days . Urinary frequency, pain and burning with urinary. Denies fever or chills. 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 Menses: irregular spotting since Nexplanon inserted. Contraception: Nexplanon 02/18/2022 HPV vaccine: Yes Last Pap: 12/17/2022 normal HPV: N/A History of abnormal pap: No Last mammogram: never Sexually active: Yes History of STDS: None Patient concerns for STD exposure: No. Time with current partner: 2 years Pain with intercourse: No Postcoital bleeding: No Some documentation from previous visit of 12/17/2022 was copied and pasted, documentation has been reviewed and edited as necessary for today's visit. 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 PAST SURGICAL HISTORY Procedure Laterality Date NEXPLANON INSERTION Left 02/18/2022 TOOTH EXTRACTION wisdom teeth FAMILY HISTORY Problem Relation Age of Onset Cancer Father other (brain tumor) Father 2010 - surgery, doing well other (precancerous skin lesions) Maternal Grandfather Heart Attack Paternal Grandfather Alcohol abuse Paternal Grandfather SOCIAL HISTORY Social History Tobacco Use Smoking status: Never Smokeless tobacco: Never Vaping Use Vaping Use: Never used Substance Use Topics Alcohol use: Never Drug use: Never REVIEW OF SYSTEMS Abdomen: No abdominal pain, nausea, vomiting, diarrhea, or constipation. No bloating, early satiety, indigestion, or increased flatulence. Bladder: No dysuria, gross hematuria, urinary frequency, urinary urgency, or incontinence. Breast: No breast lumps, nipple d/c, overlying skin changes, redness or skin retraction. Allergies and current medication updated:Yes EXAM: BP 98/68 Ht 5' 1.5 (1.56m) Wt 112 lb 3.2 oz (50.9kg) LMP 12/08/2023 BMI 20.86 kg/(m^2). GENERAL: pleasant, female in no apparent distress HEENT: Normocephalic, atraumatic, mucus membranes moist, and no lesions NECK: Supple, full range of motion, no adenopathy, and thyroid normal DERMATOLOGY: Normal, without lesions, non-icteric, and non-hirsute BREAST: soft, non-tender, symmetric, no dominant mass, normal nipple-areolar complex, no lymphadenopathy, and no nipple discharge CHEST: Normal inspiratory effort ABDOMEN: soft, non-tender, and no masses PELVIC: external genitalia normal, normal Bartholin's glands, urethra, Chickasha's glands, no vulvar lesions, no cervical lesions, good vaginal support, physiologic discharge present, normal appearing perineal body and perianal region BIMANUAL: uterus normal size, shape and consistency, no adnexal masses, and non-tender RECTOVAGINAL: deferred. NEURO: alert and oriented x3,exam grossly non-focal EXTREMITIES: normal ASSESSMENT/PLAN: 1) Health maintenance: Pap/HPV up to date. Nutrition, exercise and routine health maintenance exams reviewed. HPV vaccine: completed series 2. Dysuria - ICD9: 788.1, ICD10: R30.0 recurrent - UA positive for malcolm esterase and hematuria - Send urine for culture - Begin treatment with Macrobid 100 mg BID for 7 days - Patient education for prevention given. Cystex, increased fluid intake, given list of bladder irritants. - GONORRHEA/CHLAMYDIA NAAT - URINE CULTURE - NITROFURANTOIN MONOHYDRATE & MACROCRYSTAL 100 MG ORAL CAP 3) Contraception: Nexplanon. Contraceptive options reviewed and information provided. 4) STD screening: Accepted STD check for Gonorrhea and Chlamydia. 5) Follow up one year or sooner as needed Perla Duncan APRN.C PYTHON DEVELOPER documented in this encounter [facility] 12-17-2022 History of Presen t illness Narrative Imaging Scheduler offered: Patient declines. Xin is a 22 year old who presents for an annual gynecologic exam without complaints. in May 2022. Menses: Had dark spotting x 2 weeks for first time since Nexplanon inserted. Spotting has just stopped. Contraception: Nexplanon HPV vaccine: Yes Last Pap: never HPV: N/A History of abnormal pap: No Last mammogram: never Sexually active: Yes History of STDS: None Patient concerns for STD exposure: No. Time with current partner: 7 months Pain with intercourse: Yes, just at insertion. 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 No bloating, early satiety, indigestion, or increased flatulence. Bladder: No dysuria, gross hematuria, urinary frequency, urinary urgency, or incontinence. Dry nipples. Breast: No breast lumps, nipple d/c, overlying skin changes, redness or skin retraction. Allergies and current medication updated:Yes EXAM: BP 94/64 Ht 5' 1.5 (1.56m) Wt 107 lb (48.5kg) LMP 11/29/2022 BMI 19.89 kg/(m^2). GENERAL: pleasant, female in no apparent distress HEENT: Normocephalic, atraumatic, mucus membranes moist, and no lesions NECK: Supple, full range of motion, no adenopathy, and thyroid enlarged - PCP is monitoring DERMATOLOGY: Normal, without lesions, non-icteric, and non-hirsute BREAST: soft, non-tender, symmetric, no dominant mass, normal nipple-areolar complex, no lymphadenopathy, and no nipple discharge. Left nipple inverted per her normal. CHEST: Normal inspiratory effort ABDOMEN: soft, non-tender, and no masses PELVIC: external genitalia normal, normal Bartholin's glands, urethra, Chickasha's glands, no vulvar lesions, no cervical lesions, good vaginal support, small amount dark blood present, normal appearing perineal body and perianal region BIMANUAL: uterus normal size, shape and consistency, no adnexal masses, and non-tender RECTOVAGINAL: deferred. NEURO: alert and oriented x3,exam grossly non-focal EXTREMITIES: normal ASSESSMENT/PLAN: 1) Health maintenance: Pap done with reflex HPV. Nutrition, exercise and routine health maintenance exams reviewed. HPV vaccine: completed series 2) Contraception: Nexplanon. Contraceptive options reviewed and information provided. 3) STD screening: Accepted STD check for Gonorrhea and Chlamydia. 4) Follow up one year or sooner as needed Perla Duncan APRN.C PYTHON DEVELOPER documented in this encounter [facility] 06-08-2022 Instructions Mirella Maldonado RN - 06/08/2022 3:12 PM EDT Gardasil Gardasil is a vaccine to protect against Human Papillomavirus (HPV) types 6, 11, 16, 18, 31,33,45, 52, 58. These viruses cause cancer and precancerous lesions on the cervix (opening between vagina and uterus), in the vagina and on the vulva (skin around the outside of the vagina) as well as genital warts. The vaccine cannot cause these diseases and cannot treat them if already present. Gardasil works best if given before contact with HPV. Most people are exposed to HPV soon after starting sexual activity. The vaccine is recommended between the ages of 9 and 45. Gardasil does not protect against all strains of HPV. Women who receive the vaccine still need to have regular pelvic exams and cervical cancer screening with the pap smear. You should ask your doctor if Gardasil is right for you if you have a weakened immune system, a bleeding disorder, plan to become soon or have a current illness causing fever. Gardasil is not recommended for women. You should be sure your doctor is aware of any allergies you have and all medications and herbal supplements you take. Gardasil is given to those ages 9-14 in 2 doses at 0 and 8 months. In ages 15-45, three injections are given at 0,2,6 months. Common side effects include pain, redness, itching and swelling at the injection site, nausea, fever, dizziness and fainting. Rare but potentially serious reactions have been reported. These include allergic reaction, swollen glands, joint and muscle pain, weakness and Guillain-[place] syndrome. documented in this encounter [facility] 06-08-2022 History of Presen t illness Narrative Patient identified by name and date of . Xin CLARK is here for her HPV 9 vaccination, injection # three of the series. Patient ?No Gardasil injection was given without incident. See immunizations for details of immunizations administered today. VIS sheet provided: Yes Patient advised to follow up in Series completed Provider Deanne Fan APRN.KEVINM was present in office at time of injection. Mirella Maldonado RN documented in this encounter [facility] 02-18-2022 Instructions Hortensia Uribe MA - 02/18/2022 9:23 AM EDT POST IUD INSTRUCTIONS You may have irregular bleeding during the first 3 months of use. You may have mild-severe cramping for the next 48 hours. You may use over the counter medication (Motrin, Tylenol) as needed. Your IUD must be removed or replaced based on the following table: IUD Type Removed or replaced within: Florinda 3 years Kyleena 5 years Mirena 7 years Paragard 10 years Call my office for signs/symptoms of infection such as severe cramping, fever, or unusual bleeding. Check for string placement as instructed by your doctor. If you have any additional questions, please contact the office. NEXPLANON PATIENT EDUCATION You may remove dressing in 24 hours. Expect some bruising around insertion site. You may take over the counter pain medication (i.e. Tylenol, motrin, advil, etc) if you have discomfort. Call your provider with excessive bruising or pain. Continue to use condoms for STD prevention. You should use backup contraception for 7 days to prevent . documented in this encounter [facility] 02-18-2022 History of Presen t illness Narrative Xin is a 21 year old patient who presents for Nexplanon insertion. Patient's last menstrual period was 02/16/2022. VITALS: BP 100/60 Wt 106 lb (48.1kg) LMP 02/16/2022 Getting June 12. test: negative Nexplanon lot #: [id number] Exp date: 04/16/2024 UNIVERSAL PROTOCOL / SAFETY CHECKLIST Procedure to be Performed: Nexplanon insertion Sign In: A Moment of CARE was completed. Personnel directly involved with the procedure wore the appropriate PPE (Personal Protective Equipment). Patient/Surrogate Stated/Verified: PATIENT VERIFIED(optional for EMERGENT procedures): Patient name, Date of , Relevant allergies and The intended procedure Time Out Communication: Sign Out: SIGN OUT (optional for EMERGENT procedures): All specimen containers correctly labeled. All instruments, equipment, possible retained foreign bodies accounted for. Post-procedure follow-up management communicated and Plan of Care Visit completed when applicable. * Perla Duncan APRN.C PYTHON DEVELOPER TECHNIQUE: Patient placed in supine position with left) bent at the elbow and placed over the head. Skin cleansed with betadine. 2 mL of 1% lidocaine with 1:100,000 epi injected subQ along insertion site. Nexplanon shavonne inserted under sterile technique. After insertion by the provider, the shavonne was palpable under the skin by both patient and provider. Steristrips and sterile pressure dressing applied. A&P: Nexplanon inserted without complications. Patient user card was filled out and given to the patient. The patient was instructed to remove the dressing after 24 hours. Advised to use backup contraception for 7 days. Perla Duncan APRN.C PYTHON DEVELOPER documented in this encounter [facility] 02-05-2022 Maribel Gallegos LPN - 02/05/2022 10:05 AM EDT Gardasil Gardasil is a vaccine to protect against Human Papillomavirus (HPV) types 6, 11, 16, 18, 31,33,45, 52, 58. These viruses cause cancer and precancerous lesions on the cervix (opening between vagina and uterus), in the vagina and on the vulva (skin around the outside of the vagina) as well as genital warts. The vaccine cannot cause these diseases and cannot treat them if already present. Gardasil works best if given before contact with HPV. Most people are exposed to HPV soon after starting sexual activity. The vaccine is recommended between the ages of 9 and 45. Gardasil does not protect against all strains of HPV. Women who receive the vaccine still need to have regular pelvic exams and cervical cancer screening with the pap smear. You should ask your doctor if Gardasil is right for you if you have a weakened immune system, a bleeding disorder, plan to become soon or have a current illness causing fever. Gardasil is not recommended for women. You should be sure your doctor is aware of any allergies you have and all medications and herbal supplements you take. Gardasil is given to those ages 9-14 in 2 doses at 0 and 8 months. In ages 15-45, three injections are given at 0,2,6 months. Common side effects include pain, redness, itching and swelling at the injection site, nausea, fever, dizziness and fainting. Rare but potentially serious reactions have been reported. These include allergic reaction, swollen glands, joint and muscle pain, weakness and Guillain-[place] syndrome. documented in this encounter [facility] 02-05-2022 History of Presen t illness Narrative Patient identified by name and date of . Xin CLARK is here for her HPV 9 vaccination, injection # two of the series. Patient ?No Gardasil injection was given without incident. See immunizations for details of immunizations administered today. VIS sheet provided: Yes Patient advised to follow up in 4 months from the 2nd injection Provider Perla Duncan was present in office at time of injection. Hallie Gallegos LPN documented in this encounter [facility] Evaluation note Diagnosis Need for prophylactic vaccination/inoculation against viral disease Need for prophylactic vaccination and inoculation against other viral diseases [facility] Insertion of implantable subdermal contraceptive- Primary [facility] Diagnosis Need for prophylactic vaccination/inoculation against viral disease- Primary Need for prophylactic vaccination and inoculation against other viral diseases [facility] Diagnosis Encounter for gynecological examination (general) (routine) without abnormal findings- Primary Screening for cervical cancer Screening for malignant neoplasm of the cervix Screen for STD (sexually transmitted disease) Screening examination for venereal disease [facility] Diagnosis Encounter for gynecological examination with abnormal finding- Primary Routine gynecological examination Dysuria Urinary frequency Screen for STD (sexually transmitted disease) Screening examination for venereal disease [facility] Diagnosis Encounter for gynecological examination (general) (routine) without abnormal findings- Primary Nexplanon removal Surveillance of previously prescribed implantable subdermal contraceptive documented in this encounter [facility]* Diagnosis Encounter for Nexplanon removal- Primary Surveillance of previously prescribed implantable subdermal contraceptive documented in this encounter [facility] for referral (narrative)* Outpatient Procedure (Routine) - Pending Review Specialty Diagnoses / Procedures Referred By Magdiel salazar [facility]erred To Contact [facility] Diagnoses Insertion of implantable subdermal contraceptive Procedures NEXPLANON INSERTION ETONOGESTREL IMPLANT SYSTEM INSERT DRUG IMPLANT DEVICE Perla Duncan APRN.CNP [address] [place] [address] [address] Referral ID Status Reason Start Date Expiration Date Visits Requested Visits Authorized [id number] Pending Review Auto-Generat ed Referral 02/18/2022 02/18/2023 1 1 [facility] for referral (narrative)* Outpatient Procedure (Routine) - Authorized Specialty Diagnoses / Procedures Referred By Magdiel salazar Referred To Contact [facility] Diagnoses Nexplanon removal Procedures NEXPLANON REMOVAL REMOVAL NON-BIODEGRADABLE DRUG DELIVERY IMPLANT Perla Duncan APRN.CNP [address] [place] [address] [address] [address] [place] [address] Referral ID Status Reason Start Date Expiration Date Visits Requested Visits Authorized [id number] Authorized Auto-Generat ed Referral 12/21/2024 12/21/2025 1 1 [facility] Summary Purpose Family History No Family History Records FoundNo Family History Records FoundNo Family History Records FoundNo Family History Records FoundNo Family History Records Found Advance Directives No Advanced Directives Records FoundNo Advanced Directives Records FoundNo Advanced Directives Records FoundNo Advanced Directives Records FoundNo Advanced Directives Records Found Medications Administered Section Inactive Administered Medications - up to 3 most recent administrations Medication Order MAR Action Action Date Dose Rate Site etonogestrel subdermal implant 68 mg (NEXPLANON) 68 mg, SUBDERMAL, ONCE (UP TO 30 DAYS AMB), 1 dose, On Keisha 02/18/22 at 1000, Hazardous Potential Reproductive Risk Drug: Use appropriate PPE. Must be inserted subdermally in the upper arm by a trained healthcare provider. Given 02/18/2022 10:14 AM EDT 68 mg Arm, Left Additional Source Comments INFORMATION SOURCE (unrecogn ized section and content) DATE CREATED AUTHOR 05/05/2018 [facility] DATE CREATED AUTHOR AUTHOR'S ORGANIZ ATION 01/07/2020 [facility] DATE CREATED AUTHOR AUTHOR'S ORGANIZ ATION 08/01/2021 [facility] DATE CREATED AUTHOR AUTHOR'S ORGANIZ ATION 01/28/2025 [facility] DATE CREATED AUTHOR AUTHOR'S ORGANIZ ATION 05/07/2025 [facility] Source Comments (unrecognize d section and content) In the event this informatio n is protected by the Federal Confidentiality of Alcohol and Drug Abuse Patient Records regulations: The Federal rules restrict any use of the information to criminally investigate or prosecute any alcohol or drug abuse patient.[facility] the event this information is protected by the Federal Confidentiality of Alcohol and Drug Abuse Patient Records regulations: The Federal rules restrict any use of the information to criminally investigate or prosecute any alcohol or drug abuse patient.[facility] the event this information is protected by the Federal Confidentiality of Alcohol and Drug Abuse Patient Records regulations: The Federal rules restrict any use of the information to criminally investigate or prosecute any alcohol or drug abuse patient.[facility] the event this information is protected by the Federal Confidentiality of Alcohol and Drug Abuse Patient Records regulations: The Federal rules restrict any use of the information to criminally investigate or prosecute any alcohol or drug abuse patient.[facility] the event this information is protected by the Federal Confidentiality of Alcohol and Drug Abuse Patient Records regulations: The Federal rules restrict any use of the information to criminally investigate or prosecute any alcohol or drug abuse patient.[facility] the event this information is protected by the Federal Confidentiality of Alcohol and Drug Abuse Patient Records regulations: The Federal rules restrict any use of the information to criminally investigate or prosecute any alcohol or drug abuse patient.[facility] the event this information is protected by the Federal Confidentiality of Alcohol and Drug Abuse Patient Records regulations: The Federal rules restrict any use of the information to criminally investigate or prosecute any alcohol or drug abuse patient.[facility] the event this information is protected by the Federal Confidentiality of Alcohol and Drug Abuse Patient Records regulations: The Federal rules restrict any use of the information to criminally investigate or prosecute any alcohol or drug abuse patient.[facility] Reason for Visit (unrecogniz ed section and content) Reason Onset Date Comments Gardasil Injection 02/05/2022 Specialty Diagnoses / Procedures Referred By Contac t Referred To Contact INFO SPECIALIST Diagnoses Encounter for gynecological examination (general) (routine) without abnormal findings HPV #2 Procedures OFFICE/OUTPATIENT NEW HIGH 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, Nurse Supervisor [employer] [facility] [address] [place] [address] Referral ID Status Reason Start Date Expiration Date Visits Re quested Visits Authorized [id number] Closed 02/05/2022 05/06/2022 1 1 Reason Onset Date Comments Insertion Of IUD 02/18/2022 Specialty Diagnoses / Procedures Referred By Contac t Referred To Contact [facility] Diagnoses General counseling and advice for contraceptive management Procedures NEXPLANON INSERTION ETONOGESTREL IMPLANT SYSTEM INSERT DRUG IMPLANT DEVICE Perla Duncan APRN.C PYTHON DEVELOPER [address] [place] [address] [address] Referral ID Status Reason Start Date Expiration Date V isits Requested Visits Authorized [id number] Authorized 11/14/2021 11/13/2022 2 2 Reason Onset Date Comments Gardasil Injection 06/08/2022 Specialty Diagnoses / Procedures Referred By Contac t Referred To Contact INFO SPECIALIST Diagnoses HPV #3 Procedures OFFICE/OUTPATIENT ESTABLISHED MOD MDM 30-39 MIN I NURSE Self, Wstr, Nurse Supervisor [employer] [facility] [address] [place] [address] Referral ID Status Reason Start Date Expiration Date Visits Re quested Visits Authorized [id number] Closed 11/14/2021 11/13/2022 1 1 Reason Comments Yearly Exam Reason Comments Yearly Exam Reason Comments nexplanon removal Specialty Diagnoses / Procedures Referred By Contac t Referred To Contact [facility] Diagnoses Nexplanon removal Procedures NEXPLANON REMOVAL REMOVAL NON-BIODEGRADABLE DRUG DELIVERY IMPLANT Perla Duncan APRN.C PYTHON DEVELOPER [address] [place] [address] Phone: tel: fax: [address] [address] Referral ID Status Reason Start Date Expiration Date V isits Requested Visits Authorized [id number] Closed Auto-Generate d Referral 12/21/2024 12/21/2025 1 1 Care Teams (unrecognized sec tion and content) Customer Equipment Engineer Relationship Specialty Start Date End Date Abdias Mccartney PCP - General Pediatrics 01/23/18 Customer Equipment Engineer Relationship Specialty Start Date End Date Abdias Mccartney PCP - General Pediatrics 01/23/18 Customer Equipment Engineer Relationship Specialty Start Date End Date Abdias Mccartney PCP - General Pediatrics 01/23/18 Customer Equipment Engineer Relationship Specialty Start Date End Date Abdias Mccartney PCP - General Pediatrics 01/23/18 Customer Equipment Engineer Relationship Specialty Start Date End Date Abdias Mccartney PCP - General Pediatrics 01/23/18 Customer Equipment Engineer Relationship Specialty Start Date End Date Abdias Mccartney PCP - General Pediatrics 01/23/18 Customer Equipment Engineer Relationship Specialty Start Date End Date Abdias Mccartney MD PCP - General Pediatrics 01/23/18 Customer Equipment Engineer Relationship Specialty Start Date End Date Abdias Mccartney MD PCP - General Pediatrics 01/23/18 FOR RECORDS PERTAINING TO PATIENTS WHO ARE OR HAVE BEEN ENROLLED IN A CHEMICAL DEPENDENCY/SUBSTANCEABUSE PROGRAM, SOME INFORMATION MAY BE OMITTED. This clinical summary was aggregated from multiple sources. Caution should be exercised in using it in the provision of clinical care. This summary normalizes information from multiple sources, and as a consequence, information in this document may materially change the coding, format and clinical context of patient data. In addition, data may be omitted in some cases. CLINICAL DECISIONS SHOULD BE BASED ON THE PRIMARY CLINICAL RECORDS. [facility]. provides no warranty or guarantee of the accuracy or completeness of information in this document.
[2025-07-02 06:43] VITALS: BP 112/75; PULSE 69; RESP 16; TEMP 36.6; O2SAT 100
[2025-07-02 06:48] LABS: HIV Nonreactive (Nonreactive); Hepatitis B Surface Antigen Nonreactive (Nonreactive); Hepatitis C Antibody Nonreactive (Nonreactive)
== END 2025-07-02 06:45 | disposition home or self-care (01) ==
LOC: ED 05:41
PROVIDERS: PCP Student in an Organized Health Care Education/Training Program; Visit Provider Emergency Medicine
DX: Z77.21 Contact with and (suspected) exposure to potentially hazardous body fluids (principal)
CPT/HCPCS: 36415; 86703; 86706; 86803; 87340